=== PATIENT | male | born 1940 | race Caucasian/White ===

== ENCOUNTER 2023-04-21 17:21 | Inpatient (IN) | payer MEDICARE, OTHER ==
[~2023-04-21] VITALS: Ht 172.7 cm; Wt 90.7 kg
[2023-04-21] MEDS ORDERED: SENN8.6T19 PO (21:23)
[2023-04-21] MEDS ORDERED: ATOR10TA PO (21:23)
[2023-04-21] MEDS ORDERED: CARB1TAB21 PO (21:23)
[2023-04-21] MEDS ORDERED: AMLO5TAB4 PO (21:23)
[2023-04-21] MEDS ORDERED: TELM80TA2 PO (21:23)
[2023-04-21] MEDS ORDERED: ASPI-1101 PO (21:23)
[2023-04-21] MEDS ORDERED: POLY17PO4 PO (21:23)
[2023-04-21] MEDS ORDERED: CARV12.5 PO (21:23)
[2023-04-21] MEDS ORDERED: GABA-532 PO (21:23)
[2023-04-21] MEDS ORDERED: ACET-73 PO (21:23)
[2023-04-21] MEDS ORDERED: [UNRECOGNIZED DRUG - OTHER] PO (21:23)
[2023-04-21] MEDS ORDERED: DULO60CA45 PO (21:23)
[2023-04-21] MEDS ORDERED: SUBUTEX SL (21:23)
[2023-04-21] MEDS ORDERED: [UNRECOGNIZED DRUG - CODE] PO (21:23)
[2023-04-21] MEDS ORDERED: TAMS-3 PO (21:23)
[2023-04-21] MEDS ORDERED: ALLO100T56 PO (21:23)
[2023-04-21 21:35] VITALS: BP 103/48; TEMP 98.4; O2SAT 96
[2023-04-22 04:40] VITALS: BP 132/63; TEMP 98.3; O2SAT 93
[2023-04-22 08:00] VITALS: BP 122/60; TEMP 98.4; O2SAT 93
[2023-04-22] MEDS: CARBIDOPA/LEVODOPA 25-100MG TABLET PO SCH ×3 (13:47→22:03)
[2023-04-22] MEDS: GABAPENTIN 100 MG CAPSULE PO SCH ×2 (13:47→16:53)
[2023-04-22] MEDS: ACETAMINOPHEN ES 500 MG TABLET PO PRN (14:04)
[2023-04-22 16:37] VITALS: BP 144/66; TEMP 98.1; O2SAT 92
[2023-04-22] MEDS: ARGININE/GLUTAMINE/CALCIUM BMB 1 EACH POWD.PACK PO SCH (16:52)
[2023-04-22] MEDS: SENNOSIDES 1 TABLET PO SCH (16:53)
[2023-04-22] MEDS: AMLODIPINE 5 MG TABLET PO SCH (16:53)
[2023-04-22] MEDS: CARVEDILOL 12.5 MG TABLET PO SCH (17:02)
[2023-04-22 20:25] VITALS: BP 107/50; TEMP 98; O2SAT 94
[2023-04-22] MEDS: OXYCODONE HCL 5 MG TABLET PO PRN (22:12)
[2023-04-23 04:55] VITALS: BP 103/49; TEMP 98.1; O2SAT 93
[2023-04-23 07:22] LABS: BASOPHILS # (AUTO) 0.1 K/UL (0.0-0.2); EOSINOPHILS # (AUTO) 0.4 K/uL (0.0-0.7); EOSINOPHILS % (AUTO) 5.4 % (0.0-7.0); HEMOGLOBIN 9.9 g/dL (12.5-16.3); LYMPHOCYTES # (AUTO) 1.1 K/uL (0.8-4.8); LYMPHOCYTES % (AUTO) 15.8 % (20.5-51.5); MEAN CORPUSCULAR HEMOGLOBIN 31.3 uug (23.8-33.4); MEAN CORPUSCULAR HGB CONC 34 g/dL (32.5-36.3); MEAN CORPUSCULAR VOLUME 91.6 fL (73.0-96.2); MONOCYTES # (AUTO) 0.8 K/uL (0.1-1.30); MONOCYTES % (AUTO) 11.2 % (0.0-11.0); NEUTROPHILS # (AUTO) 4.6 K/uL (1.8-8.9); NEUTROPHILS % (AUTO) 66.6 % (38.5-71.5); PLATELET COUNT (AUTO) 476 K/uL (152-348); RED BLOOD CELL COUNT(AUTO) 3.17 MIL/uL (4.06-5.63); RED CELL DISTRIBUTION WIDTH 14.5 % (12.1-16.2)
[2023-04-23 07:29] LABS: DIFFERENTIAL COMMENT 1
[2023-04-23 07:44] VITALS: BP 115/55; TEMP 98.6; O2SAT 94
[2023-04-23 07:49] LABS: CARBON DIOXIDE 27 mmol/L (21-32); CHLORIDE 99 mmol/L (98-107); CREATININE 1.3 mg/dL (0.6-1.3); GLUCOSE 121 mg/dL (74-106); PHOSPHOROUS 3.7 mg/dL (2.5-4.9); POTASSIUM 4.2 mmol/L (3.5-5.1); SODIUM SERUM 134 mmol/L (136-145); UREA NITROGEN, BLOOD 36 mg/dL (7-18)
[2023-04-23] MEDS: MULTIVIT, IRON, MIN NO. 8, FA TABLET PO SCH (08:41)
[2023-04-23] MEDS: DULOXETINE 60 MG CAPSULE.DR PO SCH (08:41)
[2023-04-23] MEDS: ALLOPURINOL 100 MG TABLET PO SCH (08:42)
[2023-04-23] MEDS: ASPIRIN EC 81 MG TABLET.DR PO SCH (08:42)
[2023-04-23] MEDS: CARBIDOPA/LEVODOPA 25-100MG TABLET PO SCH ×4 (08:42→21:36)
[2023-04-23] MEDS: SENNOSIDES 1 TABLET PO SCH ×2 (08:42→16:40)
[2023-04-23] MEDS: AMLODIPINE 5 MG TABLET PO SCH ×2 (08:42→16:39)
[2023-04-23] MEDS: LOSARTAN POTASSIUM 50 MG TABLET PO SCH (08:42)
[2023-04-23] MEDS: MIRALAX 17 GM POWD.PACK PO SCH (08:43)
[2023-04-23] MEDS: GABAPENTIN 100 MG CAPSULE PO SCH ×3 (08:43→16:39)
[2023-04-23] MEDS: CARVEDILOL 12.5 MG TABLET PO SCH ×2 (08:43→17:07)
[2023-04-23] MEDS: ARGININE/GLUTAMINE/CALCIUM BMB 1 EACH POWD.PACK PO SCH ×2 (08:44→16:39)
[2023-04-23] MEDS ORDERED: ATORVASTATIN 10 MG TABLET PO SCH (09:00)
[2023-04-23] MEDS ORDERED: Medication Not On Formulary EA (Telmisartan (Micardis) 1 TAB) PO SCH (09:00)
[2023-04-23] MEDS ORDERED: VALSARTAN 160 MG TABLET PO SCH (09:00)
[2023-04-23] MEDS: OXYCODONE HCL 5 MG TABLET PO PRN ×2 (09:48→23:42)
[2023-04-23 16:38] VITALS: BP 105/50; TEMP 98; O2SAT 95
[2023-04-23 20:26] VITALS: BP 107/54; TEMP 98.1; O2SAT 93
[2023-04-23] MEDS: TAMSULOSIN HCL 0.4 MG CAP.SR.24H PO SCH (21:36)
[2023-04-24 04:38] VITALS: BP 137/64; TEMP 98.4; O2SAT 94
[2023-04-24 07:11] VITALS: BP 114/59; TEMP 98.2; O2SAT 96
[2023-04-24] MEDS: DULOXETINE 60 MG CAPSULE.DR PO SCH (08:45)
[2023-04-24] MEDS: CARBIDOPA/LEVODOPA 25-100MG TABLET PO SCH ×4 (08:45→20:10)
[2023-04-24] MEDS: ASPIRIN EC 81 MG TABLET.DR PO SCH (08:46)
[2023-04-24] MEDS: AMLODIPINE 5 MG TABLET PO SCH ×2 (08:47→17:00)
[2023-04-24] MEDS: CARVEDILOL 12.5 MG TABLET PO SCH ×2 (08:47→17:29)
[2023-04-24] MEDS: GABAPENTIN 100 MG CAPSULE PO SCH ×3 (08:47→17:30)
[2023-04-24] MEDS: ALLOPURINOL 100 MG TABLET PO SCH (08:48)
[2023-04-24] MEDS: ARGININE/GLUTAMINE/CALCIUM BMB 1 EACH POWD.PACK PO SCH ×2 (09:00→17:39)
[2023-04-24] MEDS: SENNOSIDES 1 TABLET PO SCH ×2 (10:42→17:31)
[2023-04-24] MEDS: LOSARTAN POTASSIUM 50 MG TABLET PO SCH (10:42)
[2023-04-24] MEDS: MULTIVIT, IRON, MIN NO. 8, FA TABLET PO SCH (10:43)
[2023-04-24] MEDS: MIRALAX 17 GM POWD.PACK PO SCH (10:43)
[2023-04-24 15:37] VITALS: BP 109/47; TEMP 98.9; O2SAT 96
[2023-04-24 20:00] VITALS: BP 108/52; TEMP 98.3; O2SAT 93
[2023-04-24] MEDS: TAMSULOSIN HCL 0.4 MG CAP.SR.24H PO SCH (20:10)
[2023-04-24] MEDS: OXYCODONE HCL 5 MG TABLET PO PRN (22:17)
[2023-04-25 03:52] VITALS: BP 115/64; TEMP 98.3; O2SAT 93
[2023-04-25 06:41] LABS: BASOPHILS # (AUTO) 0.1 K/UL (0.0-0.2); BASOPHILS % (AUTO) 1.3 % (0.0-2.0); EOSINOPHILS # (AUTO) 0.4 K/uL (0.0-0.7); EOSINOPHILS % (AUTO) 5.7 % (0.0-7.0); HEMOGLOBIN 9.9 g/dL (12.5-16.3); LYMPHOCYTES # (AUTO) 1.2 K/uL (0.8-4.8); LYMPHOCYTES % (AUTO) 18.6 % (20.5-51.5); MEAN CORPUSCULAR HEMOGLOBIN 31.1 uug (23.8-33.4); MEAN CORPUSCULAR HGB CONC 34 g/dL (32.5-36.3); MEAN CORPUSCULAR VOLUME 91.1 fL (73.0-96.2); MONOCYTES # (AUTO) 0.6 K/uL (0.1-1.30); MONOCYTES % (AUTO) 10.3 % (0.0-11.0); NEUTROPHILS % (AUTO) 64.1 % (38.5-71.5); PLATELET COUNT (AUTO) 463 K/uL (152-348); RED BLOOD CELL COUNT(AUTO) 3.18 MIL/uL (4.06-5.63); RED CELL DISTRIBUTION WIDTH 14.6 % (12.1-16.2); WHITE BLOOD COUNT (AUTO) 6.2 K/uL (3.6-10.2)
[2023-04-25 06:52] LABS: DIFFERENTIAL COMMENT 1
[2023-04-25 07:19] LABS: ALBUMIN 2.6 g/dL (3.4-5.0); BILIRUBIN,TOTAL 0.4 mg/dL (0.2-1.0); CALCIUM 10.5 mg/dL (8.5-10.1); CREATININE 1.3 mg/dL (0.6-1.3); MAGNESIUM 2.2 mg/dL (1.8-2.4); PHOSPHOROUS 3.8 mg/dL (2.5-4.9); POTASSIUM 4.2 mmol/L (3.5-5.1); TOTAL PROTEIN, SERUM 6.6 g/dL (6.4-8.2)
[2023-04-25] MEDS ORDERED: HYDROCODONE/APAP 5-325MG TABLET PO SCH ×3 (08:00→18:00)
[2023-04-25] MEDS: DULOXETINE 60 MG CAPSULE.DR PO SCH (08:27)
[2023-04-25] MEDS: MULTIVIT, IRON, MIN NO. 8, FA TABLET PO SCH (08:27)
[2023-04-25] MEDS: MIRALAX 17 GM POWD.PACK PO SCH (08:27)
[2023-04-25] MEDS: GABAPENTIN 100 MG CAPSULE PO SCH ×3 (08:28→16:11)
[2023-04-25] MEDS: SENNOSIDES 1 TABLET PO SCH ×2 (08:28→16:10)
[2023-04-25] MEDS: LOSARTAN POTASSIUM 50 MG TABLET PO SCH (08:28)
[2023-04-25] MEDS: ASPIRIN EC 81 MG TABLET.DR PO SCH (08:28)
[2023-04-25] MEDS: CARBIDOPA/LEVODOPA 25-100MG TABLET PO SCH ×4 (08:29→22:13)
[2023-04-25] MEDS: AMLODIPINE 5 MG TABLET PO SCH ×2 (08:29→16:11)
[2023-04-25] MEDS: CARVEDILOL 12.5 MG TABLET PO SCH ×2 (08:29→17:05)
[2023-04-25] MEDS: ALLOPURINOL 100 MG TABLET PO SCH (08:29)
[2023-04-25 08:30] VITALS: BP 120/55; TEMP 98.8; O2SAT 94
[2023-04-25] MEDS: ARGININE/GLUTAMINE/CALCIUM BMB 1 EACH POWD.PACK PO SCH ×2 (08:35→16:11)
[2023-04-25 16:54] VITALS: BP 115/53; TEMP 98; O2SAT 95
[2023-04-25 20:00] VITALS: BP 102/51; TEMP 98.8; O2SAT 93
[2023-04-25] MEDS: TAMSULOSIN HCL 0.4 MG CAP.SR.24H PO SCH (22:13)
[2023-04-25] MEDS: OXYCODONE HCL 5 MG TABLET PO PRN (22:27)
[2023-04-26] MEDS: ACETAMINOPHEN ES 500 MG TABLET PO PRN (01:15)
[2023-04-26 02:45] VITALS: BP 113/55; O2SAT 91
[2023-04-26] MEDS: OXYCODONE HCL 5 MG TABLET PO PRN ×2 (02:58→07:03)
[2023-04-26 06:49] LABS: BASOPHILS # (AUTO) 0.1 K/UL (0.0-0.2); BASOPHILS % (AUTO) 1.7 % (0.0-2.0); EOSINOPHILS # (AUTO) 0.4 K/uL (0.0-0.7); EOSINOPHILS % (AUTO) 7.1 % (0.0-7.0); HEMATOCRIT 28.6 % (36.7-47.1); HEMOGLOBIN 9.9 g/dL (12.5-16.3); LYMPHOCYTES # (AUTO) 0.9 K/uL (0.8-4.8); LYMPHOCYTES % (AUTO) 16.5 % (20.5-51.5); MEAN CORPUSCULAR HEMOGLOBIN 31.3 uug (23.8-33.4); MEAN CORPUSCULAR HGB CONC 34 g/dL (32.5-36.3); MEAN CORPUSCULAR VOLUME 90.8 fL (73.0-96.2); MONOCYTES # (AUTO) 0.6 K/uL (0.1-1.30); MONOCYTES % (AUTO) 11.6 % (0.0-11.0); NEUTROPHILS # (AUTO) 3.3 K/uL (1.8-8.9); NEUTROPHILS % (AUTO) 63.1 % (38.5-71.5); PLATELET COUNT (AUTO) 433 K/uL (152-348); RED BLOOD CELL COUNT(AUTO) 3.15 MIL/uL (4.06-5.63); RED CELL DISTRIBUTION WIDTH 14.4 % (12.1-16.2); WHITE BLOOD COUNT (AUTO) 5.2 K/uL (3.6-10.2)
[2023-04-26 07:07] LABS: ALANINE AMINOTRANSFERASE 20 U/L (16-63); ALBUMIN 2.6 g/dL (3.4-5.0); ALKALINE PHOSPHATASE 108 U/L (50-136); ASPARTATE AMINOTRANSFERASE 11 U/L (15-37); BILIRUBIN,TOTAL 0.3 mg/dL (0.2-1.0); CALCIUM 10.2 mg/dL (8.5-10.1); CARBON DIOXIDE 29 mmol/L (21-32); CHLORIDE 99 mmol/L (98-107); CREATININE 1.3 mg/dL (0.6-1.3); GLUCOSE 119 mg/dL (74-106); SODIUM SERUM 134 mmol/L (136-145); TOTAL PROTEIN, SERUM 6.6 g/dL (6.4-8.2); UREA NITROGEN, BLOOD 33 mg/dL (7-18)
[2023-04-26 07:20] LABS: DIFFERENTIAL COMMENT 1
[2023-04-26 07:55] VITALS: BP 124/51; TEMP 98; O2SAT 97
[2023-04-26] MEDS: MIRALAX 17 GM POWD.PACK PO SCH (08:39)
[2023-04-26] MEDS: LOSARTAN POTASSIUM 50 MG TABLET PO SCH (08:40)
[2023-04-26] MEDS: MULTIVIT, IRON, MIN NO. 8, FA TABLET PO SCH (08:40)
[2023-04-26] MEDS: ALLOPURINOL 100 MG TABLET PO SCH (08:40)
[2023-04-26] MEDS: DULOXETINE 60 MG CAPSULE.DR PO SCH (08:40)
[2023-04-26] MEDS: CARBIDOPA/LEVODOPA 25-100MG TABLET PO SCH ×4 (08:41→20:29)
[2023-04-26] MEDS: SENNOSIDES 1 TABLET PO SCH ×2 (08:41→16:32)
[2023-04-26] MEDS: GABAPENTIN 100 MG CAPSULE PO SCH ×3 (08:42→16:31)
[2023-04-26] MEDS: CARVEDILOL 12.5 MG TABLET PO SCH ×2 (08:42→17:06)
[2023-04-26] MEDS: ASPIRIN EC 81 MG TABLET.DR PO SCH (08:43)
[2023-04-26] MEDS: AMLODIPINE 5 MG TABLET PO SCH ×2 (08:44→16:31)
[2023-04-26] MEDS: ARGININE/GLUTAMINE/CALCIUM BMB 1 EACH POWD.PACK PO SCH ×2 (08:49→16:32)
[2023-04-26] MEDS ORDERED: HYDROCODONE/APAP 5-325MG TABLET PO SCH (09:00)
[2023-04-26] MEDS: HYDROMORPHONE HCL 2 MG TABLET PO SCH ×2 (11:34→17:06)
[2023-04-26 14:29] LABS: *BILIRUBIN,URIN NEGATIVE (NEGATIVE); *BLOOD, URINE 3+ (NEGATIVE); *COLOR,URINE YELLOW (YELLOW); *KETONES,URINE NEGATIVE (NEGATIVE); *PROTEIN,URINE 1+ (NEGATIVE); LEUKOCYTE ESTERASE ,URINE 1+ (NEGATIVE); NITRITE, URINE POSITIVE (NEGATIVE); UGLUCOSE NEGATIVE (NEGATIVE)
[2023-04-26 14:38] LABS: *CREATININE,URINE 57.3 mg/dL (30-125); *URINE TOTAL PROTEIN RANDOM 26.6 mg/dL (<150/24HR)
[2023-04-26 14:42] LABS: *CLARITY,URINE CLOUDY (CLEAR)
[2023-04-26 16:45] VITALS: BP 117/56; TEMP 97.7; O2SAT 97
[2023-04-26 20:16] LABS: RBC,URINE TNTC /HPF (0-3); WBC,URINE 20-50 /HPF (0-3)
[2023-04-26 20:17] LABS: BACTERIA,URINE MANY /HPF (NONE SEEN); CALCIUM OXALATE CRYSTALS,UR FEW /HPF (NONE SEEN); SQUAMOUS EPITHELIAL CELL,UR NONE SEEN /HPF (NONE SEEN)
[2023-04-26] MEDS: TAMSULOSIN HCL 0.4 MG CAP.SR.24H PO SCH (20:29)
[2023-04-26 21:30] VITALS: BP 99/44; TEMP 98.3; O2SAT 94
[2023-04-27] MEDS: ACETAMINOPHEN ES 500 MG TABLET PO PRN ×2 (03:30→22:43)
[2023-04-27 04:26] VITALS: BP 129/62; TEMP 98.4; O2SAT 92
[2023-04-27 06:40] LABS: BASOPHILS # (AUTO) 0.1 K/UL (0.0-0.2); BASOPHILS % (AUTO) 1.3 % (0.0-2.0); EOSINOPHILS # (AUTO) 0.3 K/uL (0.0-0.7); EOSINOPHILS % (AUTO) 5.4 % (0.0-7.0); HEMATOCRIT 29.8 % (36.7-47.1); HEMOGLOBIN 10.2 g/dL (12.5-16.3); LYMPHOCYTES # (AUTO) 0.9 K/uL (0.8-4.8); LYMPHOCYTES % (AUTO) 14.6 % (20.5-51.5); MEAN CORPUSCULAR HEMOGLOBIN 31.1 uug (23.8-33.4); MEAN CORPUSCULAR HGB CONC 34 g/dL (32.5-36.3); MEAN CORPUSCULAR VOLUME 90.7 fL (73.0-96.2); MONOCYTES # (AUTO) 0.6 K/uL (0.1-1.30); MONOCYTES % (AUTO) 8.7 % (0.0-11.0); NEUTROPHILS # (AUTO) 4.5 K/uL (1.8-8.9); PLATELET COUNT (AUTO) 437 K/uL (152-348); RED BLOOD CELL COUNT(AUTO) 3.28 MIL/uL (4.06-5.63); RED CELL DISTRIBUTION WIDTH 14.4 % (12.1-16.2); WHITE BLOOD COUNT (AUTO) 6.4 K/uL (3.6-10.2)
[2023-04-27 06:53] LABS: DIFFERENTIAL COMMENT 1
[2023-04-27 07:09] LABS: ALBUMIN 2.8 g/dL (3.4-5.0); BILIRUBIN,TOTAL 0.5 mg/dL (0.2-1.0); CALCIUM 10.1 mg/dL (8.5-10.1); CREATININE 1.2 mg/dL (0.6-1.3); POTASSIUM 4.1 mmol/L (3.5-5.1); TOTAL PROTEIN, SERUM 6.9 g/dL (6.4-8.2)
[2023-04-27 08:09] VITALS: BP 126/62; TEMP 97.8; O2SAT 93
[2023-04-27] MEDS: HYDROMORPHONE HCL 2 MG TABLET PO SCH ×2 (08:20→18:05)
[2023-04-27] MEDS: CARVEDILOL 12.5 MG TABLET PO SCH ×2 (08:26→18:00)
[2023-04-27] MEDS: LOSARTAN POTASSIUM 50 MG TABLET PO SCH (08:27)
[2023-04-27] MEDS: DULOXETINE 60 MG CAPSULE.DR PO SCH (08:27)
[2023-04-27] MEDS: GABAPENTIN 100 MG CAPSULE PO SCH ×3 (08:28→17:06)
[2023-04-27] MEDS: MIRALAX 17 GM POWD.PACK PO SCH (08:28)
[2023-04-27] MEDS: ASPIRIN EC 81 MG TABLET.DR PO SCH (08:28)
[2023-04-27] MEDS: CARBIDOPA/LEVODOPA 25-100MG TABLET PO SCH ×4 (08:29→20:30)
[2023-04-27] MEDS: MULTIVIT, IRON, MIN NO. 8, FA TABLET PO SCH (08:29)
[2023-04-27] MEDS: AMLODIPINE 5 MG TABLET PO SCH ×2 (08:29→17:00)
[2023-04-27] MEDS: SENNOSIDES 1 TABLET PO SCH ×2 (08:29→17:07)
[2023-04-27] MEDS: ALLOPURINOL 100 MG TABLET PO SCH (08:29)
[2023-04-27] MEDS: ARGININE/GLUTAMINE/CALCIUM BMB 1 EACH POWD.PACK PO SCH ×2 (08:34→17:06)
[2023-04-27 14:09] LABS: PTH, INTACT 6 pg/mL (15-65)
[2023-04-27 16:00] VITALS: BP 107/41; TEMP 97.5; O2SAT 97
[2023-04-27 20:00] VITALS: BP 101/47; TEMP 98; O2SAT 94
[2023-04-27] MEDS: TAMSULOSIN HCL 0.4 MG CAP.SR.24H PO SCH (20:30)
[2023-04-28 04:00] VITALS: BP 111/52; TEMP 98.7; O2SAT 93
[2023-04-28 06:27] LABS: BASOPHILS # (AUTO) 0.1 K/UL (0.0-0.2); BASOPHILS % (AUTO) 1.6 % (0.0-2.0); EOSINOPHILS # (AUTO) 0.4 K/uL (0.0-0.7); EOSINOPHILS % (AUTO) 5.6 % (0.0-7.0); LYMPHOCYTES % (AUTO) 15.7 % (20.5-51.5); MEAN CORPUSCULAR HEMOGLOBIN 31.1 uug (23.8-33.4); MEAN CORPUSCULAR HGB CONC 35 g/dL (32.5-36.3); MONOCYTES # (AUTO) 0.6 K/uL (0.1-1.30); MONOCYTES % (AUTO) 9.4 % (0.0-11.0); NEUTROPHILS # (AUTO) 4.2 K/uL (1.8-8.9); NEUTROPHILS % (AUTO) 67.7 % (38.5-71.5); PLATELET COUNT (AUTO) 388 K/uL (152-348); RED BLOOD CELL COUNT(AUTO) 3.23 MIL/uL (4.06-5.63); RED CELL DISTRIBUTION WIDTH 14.7 % (12.1-16.2); WHITE BLOOD COUNT (AUTO) 6.2 K/uL (3.6-10.2)
[2023-04-28 07:14] LABS: ALANINE AMINOTRANSFERASE 20 U/L (16-63); ALBUMIN 2.7 g/dL (3.4-5.0); ALKALINE PHOSPHATASE 111 U/L (50-136); ASPARTATE AMINOTRANSFERASE 14 U/L (15-37); BILIRUBIN,TOTAL 0.4 mg/dL (0.2-1.0); CALCIUM 9.9 mg/dL (8.5-10.1); CARBON DIOXIDE 28 mmol/L (21-32); CHLORIDE 100 mmol/L (98-107); CREATININE 1.3 mg/dL (0.6-1.3); GLUCOSE 117 mg/dL (74-106); POTASSIUM 4.1 mmol/L (3.5-5.1); SODIUM SERUM 138 mmol/L (136-145); TOTAL PROTEIN, SERUM 6.5 g/dL (6.4-8.2); UREA NITROGEN, BLOOD 22 mg/dL (7-18)
[2023-04-28 07:25] LABS: MAGNESIUM 2.2 mg/dL (1.8-2.4); PHOSPHOROUS 4.1 mg/dL (2.5-4.9)
[2023-04-28 07:29] LABS: THYROID STIMULATING HORMONE 3.617 mIU/mL (0.358-3.740)
[2023-04-28 07:50] VITALS: BP 151/66; TEMP 98.3; O2SAT 96
[2023-04-28 08:09] LABS: A/G RATIO 0.8 (0.7-1.7); ALBUMIN 2.5 g/dL (2.9-4.4); ALPHA-1-GLOBULIN 0.4 g/dL (0.0-0.4); BETA GLOBULIN 1.2 g/dL (0.7-1.3); GAMMA GLOBULIN 0.6 g/dL (0.4-1.8); GLOBULIN, TOTAL 3.3 g/dL (2.2-3.9); M-SPIKE Not Observed g/dL (Not Observed)
[2023-04-28] MEDS: SENNOSIDES 1 TABLET PO SCH ×2 (08:30→16:54)
[2023-04-28] MEDS: DULOXETINE 60 MG CAPSULE.DR PO SCH (08:30)
[2023-04-28] MEDS: MULTIVIT, IRON, MIN NO. 8, FA TABLET PO SCH (08:30)
[2023-04-28] MEDS: GABAPENTIN 100 MG CAPSULE PO SCH (08:30)
[2023-04-28] MEDS: CARBIDOPA/LEVODOPA 25-100MG TABLET PO SCH ×4 (08:31→20:31)
[2023-04-28] MEDS: ALLOPURINOL 100 MG TABLET PO SCH (08:31)
[2023-04-28] MEDS: CARVEDILOL 12.5 MG TABLET PO SCH ×2 (08:31→16:41)
[2023-04-28] MEDS: AMLODIPINE 5 MG TABLET PO SCH ×2 (08:31→16:41)
[2023-04-28] MEDS: ASPIRIN EC 81 MG TABLET.DR PO SCH (08:31)
[2023-04-28] MEDS: HYDROMORPHONE HCL 2 MG TABLET PO SCH (08:31)
[2023-04-28] MEDS: LOSARTAN POTASSIUM 25 MG TABLET PO SCH (08:33)
[2023-04-28] MEDS: MIRALAX 17 GM POWD.PACK PO SCH (08:33)
[2023-04-28] MEDS: ARGININE/GLUTAMINE/CALCIUM BMB 1 EACH POWD.PACK PO SCH ×2 (08:33→16:41)
[2023-04-28] MEDS: OXYCODONE HCL 5 MG TABLET PO PRN (13:34)
[2023-04-28] MEDS ORDERED: CEphaleXIN 500 MG CAPSULE PO SCH ×2 (14:00→21:00)
[2023-04-28] MEDS ORDERED: HYDROCODONE/APAP 10-325 MG TABLET PO SCH (14:00)
[2023-04-28] MEDS: GABAPENTIN 400 MG CAPSULE PO SCH ×2 (14:02→16:41)
[2023-04-28] MEDS: CEphaleXIN 500 MG CAPSULE PO SCH ×2 (14:02→23:28)
[2023-04-28 15:51] VITALS: BP 98/49; TEMP 98; O2SAT 96
[2023-04-28] MEDS: HYDROCODONE/APAP 10-325 MG TABLET PO SCH ×2 (16:00→21:09)
[2023-04-28 20:00] VITALS: BP 96/48; TEMP 98.2; O2SAT 96
[2023-04-28] MEDS: TAMSULOSIN HCL 0.4 MG CAP.SR.24H PO SCH (20:31)
[2023-04-29] MEDS: OXYCODONE HCL 5 MG TABLET PO PRN (02:32)
[2023-04-29] MEDS: ACETAMINOPHEN ES 500 MG TABLET PO PRN (03:18)
[2023-04-29 04:26] VITALS: BP 154/83; TEMP 98.2; O2SAT 96
[2023-04-29] MEDS: HYDROCODONE/APAP 10-325 MG TABLET PO SCH ×3 (06:07→21:44)
[2023-04-29 07:34] VITALS: BP 138/74; TEMP 98.1; O2SAT 94
[2023-04-29] MEDS: ASPIRIN EC 81 MG TABLET.DR PO SCH (09:08)
[2023-04-29] MEDS: GABAPENTIN 400 MG CAPSULE PO SCH ×3 (09:08→17:33)
[2023-04-29] MEDS: CARVEDILOL 12.5 MG TABLET PO SCH ×2 (09:08→17:40)
[2023-04-29] MEDS: SENNOSIDES 1 TABLET PO SCH ×2 (09:09→17:33)
[2023-04-29] MEDS: ALLOPURINOL 100 MG TABLET PO SCH (09:09)
[2023-04-29] MEDS: MULTIVIT, IRON, MIN NO. 8, FA TABLET PO SCH (09:10)
[2023-04-29] MEDS: CARBIDOPA/LEVODOPA 25-100MG TABLET PO SCH ×4 (09:10→21:44)
[2023-04-29] MEDS: LOSARTAN POTASSIUM 25 MG TABLET PO SCH (09:10)
[2023-04-29] MEDS: DULOXETINE 60 MG CAPSULE.DR PO SCH (09:10)
[2023-04-29] MEDS: CEphaleXIN 500 MG CAPSULE PO SCH (09:12)
[2023-04-29] MEDS: MIRALAX 17 GM POWD.PACK PO SCH (09:12)
[2023-04-29] MEDS: NEOMY/BACITRAC/POLYMI OINT 28.35 GM TUBE TOP SCH ×2 (09:19→17:34)
[2023-04-29] MEDS: AMLODIPINE 5 MG TABLET PO SCH ×2 (09:25→17:00)
[2023-04-29] MEDS: ARGININE/GLUTAMINE/CALCIUM BMB 1 EACH POWD.PACK PO SCH ×2 (10:16→17:34)
[2023-04-29] MEDS ORDERED: REMEDY ESSENTIAL ZINC PASTE 113 GM TOP PRN (11:30)
[2023-04-29 15:05] VITALS: BP 113/52; TEMP 98.3; O2SAT 93
[2023-04-29] MEDS ORDERED: IV NORMAL SALINE 250 ML IV ONE (18:15)
[2023-04-29 18:37] LABS: ABG BASE EXCESS -3.2 mmol/L (-2.0-2.0); ABG HCO3 20.2 mmol/L (22.0-26.0); ABG PCO2 30.9 mmHg (35.0-48.0); ABG PH 7.434 (7.340-7.440); ABG PO2 69.8 mmHg (75.0-100.0); ABG SITE RIGHT RADIAL; ABG TOTAL HEMOGLOBIN 10.8 G/dL (14.0-18.0); AaDO2 94.7 mmHg; COHb 0.4 % (0.0-3.9); MetHb 0.1 % (0.0-1.5); O2Hb 92.9 % (94.0-97.0)
[2023-04-29 18:52] LABS: BASOPHILS # (AUTO) 0.1 K/UL (0.0-0.2); BASOPHILS % (AUTO) 1.6 % (0.0-2.0); EOSINOPHILS # (AUTO) 0.3 K/uL (0.0-0.7); EOSINOPHILS % (AUTO) 4.7 % (0.0-7.0); HEMATOCRIT 27.9 % (36.7-47.1); HEMOGLOBIN 9.5 g/dL (12.5-16.3); LYMPHOCYTES % (AUTO) 15.3 % (20.5-51.5); MEAN CORPUSCULAR HEMOGLOBIN 31.1 uug (23.8-33.4); MEAN CORPUSCULAR HGB CONC 34 g/dL (32.5-36.3); MEAN CORPUSCULAR VOLUME 90.9 fL (73.0-96.2); MONOCYTES # (AUTO) 0.4 K/uL (0.1-1.30); MONOCYTES % (AUTO) 6.6 % (0.0-11.0); NEUTROPHILS # (AUTO) 4.5 K/uL (1.8-8.9); NEUTROPHILS % (AUTO) 71.8 % (38.5-71.5); PLATELET COUNT (AUTO) 360 K/uL (152-348); RED BLOOD CELL COUNT(AUTO) 3.07 MIL/uL (4.06-5.63); RED CELL DISTRIBUTION WIDTH 14.5 % (12.1-16.2); WHITE BLOOD COUNT (AUTO) 6.3 K/uL (3.6-10.2)
[2023-04-29 18:56] LABS: DIFFERENTIAL COMMENT 1
[2023-04-29] MEDS ORDERED: ALBUTEROL SULFATE 2.5 MG/3 ML NEBU NEB PRN (19:00)
[2023-04-29 19:01] LABS: CALCIUM 9.9 mg/dL (8.5-10.1); CARBON DIOXIDE 24 mmol/L (21-32); CHLORIDE 98 mmol/L (98-107); CREATININE 1.6 mg/dL (0.6-1.3); GLUCOSE 168 mg/dL (74-106); SODIUM SERUM 134 mmol/L (136-145); UREA NITROGEN, BLOOD 31 mg/dL (7-18)
[2023-04-29 19:06] LABS: ALANINE AMINOTRANSFERASE 15 U/L (16-63); ALBUMIN 2.5 g/dL (3.4-5.0); ALKALINE PHOSPHATASE 109 U/L (50-136); ASPARTATE AMINOTRANSFERASE 11 U/L (15-37); BILIRUBIN,TOTAL 0.3 mg/dL (0.2-1.0); TOTAL PROTEIN, SERUM 6.1 g/dL (6.4-8.2)
[2023-04-29 19:15] LABS: LACTIC ACID 3.2 mmol/L (0.4-2.0)
[2023-04-29 20:00] VITALS: BP 103/58; TEMP 98.2; O2SAT 96
[2023-04-29] MEDS ORDERED: VANCOMYCIN IV 1,500 MG in IV DEXTROSE 5% 500 ML IV ONE (20:00)
[2023-04-29] MEDS ORDERED: CEFTRIAXONE 1 G in IV DEXTROSE 5% 50 ML IV SCH (21:00)
[2023-04-29] MEDS: TAMSULOSIN HCL 0.4 MG CAP.SR.24H PO SCH (21:44)
[2023-04-29] MEDS ORDERED: MEROPENEM 0.5 G in IV NORMAL SALINE 50 ML IV SCH (22:00)
[2023-04-29] MEDS ORDERED: VANCOMYCIN 1000 MG VIAL ONE (22:08)
[2023-04-29] MEDS ORDERED: VANCOMYCIN HCL 500 MG VIAL ONE (22:09)
[2023-04-30 04:00] VITALS: BP 110/56; TEMP 98; O2SAT 97
[2023-04-30] MEDS ORDERED: MEROPENEM 500 MG in IV NORMAL SALINE 50 ML IV SCH (06:00)
[2023-04-30] MEDS: HYDROCODONE/APAP 10-325 MG TABLET PO SCH ×3 (06:17→22:23)
[2023-04-30 06:29] LABS: BASOPHILS # (AUTO) 0.1 K/UL (0.0-0.2); BASOPHILS % (AUTO) 1.2 % (0.0-2.0); EOSINOPHILS # (AUTO) 0.4 K/uL (0.0-0.7); HEMOGLOBIN 9.5 g/dL (12.5-16.3); LYMPHOCYTES # (AUTO) 1.1 K/uL (0.8-4.8); LYMPHOCYTES % (AUTO) 18.9 % (20.5-51.5); MEAN CORPUSCULAR HEMOGLOBIN 30.6 uug (23.8-33.4); MEAN CORPUSCULAR HGB CONC 34 g/dL (32.5-36.3); MONOCYTES # (AUTO) 0.6 K/uL (0.1-1.30); MONOCYTES % (AUTO) 9.6 % (0.0-11.0); NEUTROPHILS # (AUTO) 3.7 K/uL (1.8-8.9); NEUTROPHILS % (AUTO) 63.3 % (38.5-71.5); PLATELET COUNT (AUTO) 328 K/uL (152-348); RED BLOOD CELL COUNT(AUTO) 3.11 MIL/uL (4.06-5.63); RED CELL DISTRIBUTION WIDTH 14.3 % (12.1-16.2); WHITE BLOOD COUNT (AUTO) 5.8 K/uL (3.6-10.2)
[2023-04-30 06:35] LABS: DIFFERENTIAL COMMENT 1
[2023-04-30 06:47] LABS: ALANINE AMINOTRANSFERASE 12 U/L (16-63); ALBUMIN 2.5 g/dL (3.4-5.0); ALKALINE PHOSPHATASE 107 U/L (50-136); ASPARTATE AMINOTRANSFERASE 8 U/L (15-37); BILIRUBIN,TOTAL 0.4 mg/dL (0.2-1.0); CALCIUM 9.8 mg/dL (8.5-10.1); CARBON DIOXIDE 27 mmol/L (21-32); CHLORIDE 100 mmol/L (98-107); CREATININE 1.2 mg/dL (0.6-1.3); GLUCOSE 110 mg/dL (74-106); MAGNESIUM 2.1 mg/dL (1.8-2.4); POTASSIUM 4.1 mmol/L (3.5-5.1); SODIUM SERUM 135 mmol/L (136-145); TOTAL PROTEIN, SERUM 6.2 g/dL (6.4-8.2); UREA NITROGEN, BLOOD 30 mg/dL (7-18)
[2023-04-30 07:52] VITALS: BP 127/68; TEMP 98.4; O2SAT 92
[2023-04-30] MEDS: CARVEDILOL 12.5 MG TABLET PO SCH ×2 (08:00→18:00)
[2023-04-30] MEDS: MEROPENEM 500 MG in IV NORMAL SALINE 50 ML IV SCH ×2 (08:57→20:38)
[2023-04-30] MEDS: AMLODIPINE 5 MG TABLET PO SCH ×2 (09:00→17:00)
[2023-04-30] MEDS: CARBIDOPA/LEVODOPA 25-100MG TABLET PO SCH ×4 (09:48→20:38)
[2023-04-30] MEDS: SENNOSIDES 1 TABLET PO SCH ×2 (09:48→16:10)
[2023-04-30] MEDS: MULTIVIT, IRON, MIN NO. 8, FA TABLET PO SCH (09:48)
[2023-04-30] MEDS: ASPIRIN EC 81 MG TABLET.DR PO SCH (09:48)
[2023-04-30] MEDS: DULOXETINE 60 MG CAPSULE.DR PO SCH (09:48)
[2023-04-30] MEDS: GABAPENTIN 400 MG CAPSULE PO SCH ×3 (09:48→16:10)
[2023-04-30] MEDS: NEOMY/BACITRAC/POLYMI OINT 28.35 GM TUBE TOP SCH ×2 (09:49→17:18)
[2023-04-30] MEDS: MIRALAX 17 GM POWD.PACK PO SCH (09:49)
[2023-04-30] MEDS: ARGININE/GLUTAMINE/CALCIUM BMB 1 EACH POWD.PACK PO SCH ×2 (09:50→16:11)
[2023-04-30] MEDS: ALLOPURINOL 100 MG TABLET PO SCH (09:51)
[2023-04-30] MEDS: ACETAMINOPHEN ES 500 MG TABLET PO PRN (11:51)
[2023-04-30] MEDS ORDERED: VANCOMYCIN IV 1,250 MG in IV DEXTROSE 5% 250 ML IV SCH (16:00)
[2023-04-30] MEDS: TAMSULOSIN HCL 0.4 MG CAP.SR.24H PO SCH (20:38)
[2023-04-30 21:39] VITALS: BP 97/61; TEMP 98.2; O2SAT 99
[2023-05-01 04:22] VITALS: BP 102/68; TEMP 97.8; O2SAT 100
[2023-05-01] MEDS: OXYCODONE HCL 5 MG TABLET PO PRN ×3 (04:47→21:43)
[2023-05-01 06:43] VITALS: BP 102/68; TEMP 97.8; O2SAT 100
[2023-05-01] MEDS: HYDROCODONE/APAP 10-325 MG TABLET PO SCH ×3 (06:55→18:37)
[2023-05-01 07:30] LABS: CALCIUM 10.3 mg/dL (8.5-10.1); CARBON DIOXIDE 27 mmol/L (21-32); CHLORIDE 101 mmol/L (98-107); CREATININE 1.2 mg/dL (0.6-1.3); GLUCOSE 103 mg/dL (74-106); POTASSIUM 4.5 mmol/L (3.5-5.1); SODIUM SERUM 137 mmol/L (136-145); UREA NITROGEN, BLOOD 35 mg/dL (7-18)
[2023-05-01 08:00] VITALS: BP 138/84; TEMP 98.8; O2SAT 97
[2023-05-01] MEDS: ASPIRIN EC 81 MG TABLET.DR PO SCH (08:34)
[2023-05-01] MEDS: MULTIVIT, IRON, MIN NO. 8, FA TABLET PO SCH (08:34)
[2023-05-01] MEDS: CARBIDOPA/LEVODOPA 25-100MG TABLET PO SCH ×4 (08:34→21:32)
[2023-05-01] MEDS: GABAPENTIN 400 MG CAPSULE PO SCH ×3 (08:34→16:45)
[2023-05-01] MEDS: SENNOSIDES 1 TABLET PO SCH ×2 (08:34→16:45)
[2023-05-01] MEDS: CARVEDILOL 12.5 MG TABLET PO SCH ×2 (08:35→17:09)
[2023-05-01] MEDS: AMLODIPINE 5 MG TABLET PO SCH ×2 (08:35→16:47)
[2023-05-01] MEDS: DULOXETINE 60 MG CAPSULE.DR PO SCH (08:35)
[2023-05-01] MEDS: ARGININE/GLUTAMINE/CALCIUM BMB 1 EACH POWD.PACK PO SCH ×2 (09:00→16:47)
[2023-05-01] MEDS: MIRALAX 17 GM POWD.PACK PO SCH (09:00)
[2023-05-01] MEDS: NEOMY/BACITRAC/POLYMI OINT 28.35 GM TUBE TOP SCH ×2 (09:04→16:46)
[2023-05-01] MEDS: MEROPENEM 500 MG in IV NORMAL SALINE 50 ML IV SCH ×2 (09:23→21:30)
[2023-05-01] MEDS: ALLOPURINOL 100 MG TABLET PO SCH (09:39)
[2023-05-01 16:26] VITALS: BP 92/47; TEMP 97.4; O2SAT 93
[2023-05-01 20:35] VITALS: BP 121/51; TEMP 97.4; O2SAT 97
[2023-05-01] MEDS: TAMSULOSIN HCL 0.4 MG CAP.SR.24H PO SCH (21:32)
[2023-05-02] MEDS: HYDROCODONE/APAP 10-325 MG TABLET PO SCH ×4 (00:52→18:06)
[2023-05-02 04:35] VITALS: BP 109/58; TEMP 98.1; O2SAT 96
[2023-05-02] MEDS: MEROPENEM 500 MG in IV NORMAL SALINE 50 ML IV SCH (07:10)
[2023-05-02 08:00] VITALS: BP 116/55; TEMP 98.4; O2SAT 95
[2023-05-02] MEDS: MIRALAX 17 GM POWD.PACK PO SCH (08:29)
[2023-05-02] MEDS: DULOXETINE 60 MG CAPSULE.DR PO SCH (08:29)
[2023-05-02] MEDS: SENNOSIDES 1 TABLET PO SCH ×2 (08:29→16:07)
[2023-05-02] MEDS: CARBIDOPA/LEVODOPA 25-100MG TABLET PO SCH ×4 (08:29→21:42)
[2023-05-02] MEDS: AMLODIPINE 5 MG TABLET PO SCH ×2 (08:29→16:07)
[2023-05-02] MEDS: GABAPENTIN 400 MG CAPSULE PO SCH ×3 (08:29→16:07)
[2023-05-02] MEDS: CARVEDILOL 12.5 MG TABLET PO SCH ×2 (08:29→17:12)
[2023-05-02] MEDS: ALLOPURINOL 100 MG TABLET PO SCH (08:30)
[2023-05-02] MEDS: MULTIVIT, IRON, MIN NO. 8, FA TABLET PO SCH (08:30)
[2023-05-02] MEDS: ASPIRIN EC 81 MG TABLET.DR PO SCH (08:30)
[2023-05-02] MEDS: NEOMY/BACITRAC/POLYMI OINT 28.35 GM TUBE TOP SCH ×2 (08:41→16:08)
[2023-05-02] MEDS: ARGININE/GLUTAMINE/CALCIUM BMB 1 EACH POWD.PACK PO SCH ×2 (08:41→16:01)
[2023-05-02] MEDS: ACETAMINOPHEN ES 500 MG TABLET PO PRN (14:54)
[2023-05-02 15:31] VITALS: BP 138/84; TEMP 98.7; O2SAT 99
[2023-05-02] MEDS ORDERED: VANCOMYCIN IV 1,250 MG in IV DEXTROSE 5% 250 ML IV SCH (16:00)
[2023-05-02 16:45] VITALS: O2SAT 96
[2023-05-02] MEDS: TAMSULOSIN HCL 0.4 MG CAP.SR.24H PO SCH (21:41)
[2023-05-03] MEDS: HYDROCODONE/APAP 10-325 MG TABLET PO SCH ×5 (00:43→23:36)
[2023-05-03] MEDS: ACETAMINOPHEN ES 500 MG TABLET PO PRN (02:36)
[2023-05-03] MEDS: OXYCODONE HCL 5 MG TABLET PO PRN ×2 (02:36→14:59)
[2023-05-03 08:00] VITALS: BP 102/67; TEMP 98.2; O2SAT 98
[2023-05-03] MEDS: CARVEDILOL 12.5 MG TABLET PO SCH ×2 (08:00→17:15)
[2023-05-03] MEDS: SENNOSIDES 1 TABLET PO SCH ×2 (08:21→16:18)
[2023-05-03] MEDS: MULTIVIT, IRON, MIN NO. 8, FA TABLET PO SCH (08:21)
[2023-05-03] MEDS: ASPIRIN EC 81 MG TABLET.DR PO SCH (08:21)
[2023-05-03] MEDS: ALLOPURINOL 100 MG TABLET PO SCH (08:21)
[2023-05-03] MEDS: MIRALAX 17 GM POWD.PACK PO SCH (08:21)
[2023-05-03] MEDS: GABAPENTIN 400 MG CAPSULE PO SCH ×3 (08:22→16:18)
[2023-05-03] MEDS: DULOXETINE 60 MG CAPSULE.DR PO SCH (08:22)
[2023-05-03] MEDS: CARBIDOPA/LEVODOPA 25-100MG TABLET PO SCH ×4 (08:22→20:48)
[2023-05-03] MEDS: AMLODIPINE 5 MG TABLET PO SCH ×2 (08:43→17:00)
[2023-05-03] MEDS: ARGININE/GLUTAMINE/CALCIUM BMB 1 EACH POWD.PACK PO SCH ×2 (08:43→16:18)
[2023-05-03] MEDS: NEOMY/BACITRAC/POLYMI OINT 28.35 GM TUBE TOP SCH ×2 (09:15→16:18)
[2023-05-03 16:00] VITALS: BP 113/54; TEMP 98.1; O2SAT 98
[2023-05-03 20:25] VITALS: BP 98/53; TEMP 97.8; O2SAT 94
[2023-05-03] MEDS: TAMSULOSIN HCL 0.4 MG CAP.SR.24H PO SCH (20:48)
[2023-05-03] MEDS: DEXAMETHASONE SOD PHOSPHATE 4 MG INJ IV SCH (22:49)
[2023-05-04 04:22] VITALS: BP 166/85; TEMP 97.7; O2SAT 97
[2023-05-04] MEDS: HYDROCODONE/APAP 10-325 MG TABLET PO SCH ×3 (05:32→17:50)
[2023-05-04] MEDS: DEXAMETHASONE SOD PHOSPHATE 4 MG INJ IV SCH ×3 (05:33→21:43)
[2023-05-04 07:11] LABS: BASOPHILS % (AUTO) 0.7 % (0.0-2.0); EOSINOPHILS % (AUTO) 0.1 % (0.0-7.0); HEMATOCRIT 32.8 % (36.7-47.1); HEMOGLOBIN 11.3 g/dL (12.5-16.3); LYMPHOCYTES # (AUTO) 0.5 K/uL (0.8-4.8); LYMPHOCYTES % (AUTO) 10.6 % (20.5-51.5); MEAN CORPUSCULAR HEMOGLOBIN 30.8 uug (23.8-33.4); MEAN CORPUSCULAR HGB CONC 35 g/dL (32.5-36.3); MEAN CORPUSCULAR VOLUME 89.3 fL (73.0-96.2); MONOCYTES # (AUTO) 0.1 K/uL (0.1-1.30); MONOCYTES % (AUTO) 1.5 % (0.0-11.0); NEUTROPHILS # (AUTO) 4.2 K/uL (1.8-8.9); NEUTROPHILS % (AUTO) 87.1 % (38.5-71.5); PLATELET COUNT (AUTO) 360 K/uL (152-348); RED BLOOD CELL COUNT(AUTO) 3.68 MIL/uL (4.06-5.63); RED CELL DISTRIBUTION WIDTH 14.5 % (12.1-16.2); WHITE BLOOD COUNT (AUTO) 4.8 K/uL (3.6-10.2)
[2023-05-04 07:24] LABS: DIFFERENTIAL COMMENT 1
[2023-05-04 07:52] VITALS: BP 150/97; TEMP 98; O2SAT 98
[2023-05-04] MEDS: MIRALAX 17 GM POWD.PACK PO SCH (08:26)
[2023-05-04] MEDS: CARBIDOPA/LEVODOPA 25-100MG TABLET PO SCH ×4 (08:26→21:41)
[2023-05-04] MEDS: GABAPENTIN 400 MG CAPSULE PO SCH ×3 (08:26→16:09)
[2023-05-04] MEDS: MULTIVIT, IRON, MIN NO. 8, FA TABLET PO SCH (08:26)
[2023-05-04] MEDS: SENNOSIDES 1 TABLET PO SCH ×2 (08:26→16:09)
[2023-05-04] MEDS: AMLODIPINE 5 MG TABLET PO SCH ×2 (08:26→16:09)
[2023-05-04] MEDS: ALLOPURINOL 100 MG TABLET PO SCH (08:26)
[2023-05-04] MEDS: ASPIRIN EC 81 MG TABLET.DR PO SCH (08:26)
[2023-05-04] MEDS: CARVEDILOL 12.5 MG TABLET PO SCH ×2 (08:26→17:05)
[2023-05-04] MEDS: DULOXETINE 60 MG CAPSULE.DR PO SCH (08:26)
[2023-05-04 08:43] LABS: ALANINE AMINOTRANSFERASE 15 U/L (16-63); ALBUMIN 3.1 g/dL (3.4-5.0); ALKALINE PHOSPHATASE 149 U/L (50-136); ASPARTATE AMINOTRANSFERASE 9 U/L (15-37); BILIRUBIN,TOTAL 0.5 mg/dL (0.2-1.0); CALCIUM 10.1 mg/dL (8.5-10.1); CARBON DIOXIDE 27 mmol/L (21-32); CHLORIDE 97 mmol/L (98-107); CREATININE 1.2 mg/dL (0.6-1.3); GLUCOSE 177 mg/dL (74-106); POTASSIUM 4.4 mmol/L (3.5-5.1); SODIUM SERUM 133 mmol/L (136-145); TOTAL PROTEIN, SERUM 7.5 g/dL (6.4-8.2); UREA NITROGEN, BLOOD 25 mg/dL (7-18)
[2023-05-04] MEDS: ARGININE/GLUTAMINE/CALCIUM BMB 1 EACH POWD.PACK PO SCH ×2 (08:59→16:10)
[2023-05-04] MEDS: NEOMY/BACITRAC/POLYMI OINT 28.35 GM TUBE TOP SCH ×2 (08:59→16:10)
[2023-05-04] MEDS ORDERED: CLONIDINE HCL 0.1 MG TABLET PO PRN (10:45)
[2023-05-04 16:00] VITALS: BP 106/90; TEMP 98.8; O2SAT 98
[2023-05-04 20:00] VITALS: BP 131/69; TEMP 99; O2SAT 96
[2023-05-04] MEDS: OXYCODONE HCL 5 MG TABLET PO PRN (20:11)
[2023-05-04] MEDS: ACETAMINOPHEN ES 500 MG TABLET PO PRN (20:12)
[2023-05-04] MEDS: TAMSULOSIN HCL 0.4 MG CAP.SR.24H PO SCH (21:39)
[2023-05-05] MEDS: HYDROCODONE/APAP 10-325 MG TABLET PO SCH ×5 (00:32→23:02)
[2023-05-05 04:00] VITALS: BP 136/71; TEMP 97.5; O2SAT 96
[2023-05-05] MEDS: DEXAMETHASONE SOD PHOSPHATE 4 MG INJ IV SCH ×3 (05:28→21:37)
[2023-05-05 07:52] VITALS: BP 146/80; TEMP 98.4; O2SAT 95
[2023-05-05] MEDS: SENNOSIDES 1 TABLET PO SCH ×2 (08:38→17:47)
[2023-05-05] MEDS: MIRALAX 17 GM POWD.PACK PO SCH (08:38)
[2023-05-05] MEDS: NEOMY/BACITRAC/POLYMI OINT 28.35 GM TUBE TOP SCH ×5 (08:38→17:50)
[2023-05-05] MEDS: ASPIRIN EC 81 MG TABLET.DR PO SCH (08:38)
[2023-05-05] MEDS: ALLOPURINOL 100 MG TABLET PO SCH (08:38)
[2023-05-05] MEDS: MODAFINIL 100 MG TABLET PO SCH (08:39)
[2023-05-05] MEDS: AMLODIPINE 5 MG TABLET PO SCH ×2 (08:39→17:47)
[2023-05-05] MEDS: GABAPENTIN 400 MG CAPSULE PO SCH ×3 (08:39→17:46)
[2023-05-05] MEDS: OXYCODONE HCL 5 MG TABLET PO PRN ×2 (08:39→20:48)
[2023-05-05] MEDS: MULTIVIT, IRON, MIN NO. 8, FA TABLET PO SCH (08:39)
[2023-05-05] MEDS: CARBIDOPA/LEVODOPA 25-100MG TABLET PO SCH ×4 (08:39→20:48)
[2023-05-05] MEDS: CARVEDILOL 12.5 MG TABLET PO SCH ×2 (08:40→17:48)
[2023-05-05] MEDS: DULOXETINE 60 MG CAPSULE.DR PO SCH (08:40)
[2023-05-05] MEDS: ARGININE/GLUTAMINE/CALCIUM BMB 1 EACH POWD.PACK PO SCH ×2 (08:40→17:46)
[2023-05-05 15:02] VITALS: BP 111/49; TEMP 98.4; O2SAT 92
[2023-05-05 16:02] LABS: BASOPHILS % (AUTO) 0.4 % (0.0-2.0); HEMATOCRIT 33.8 % (36.7-47.1); HEMOGLOBIN 11.1 g/dL (12.5-16.3); LYMPHOCYTES # (AUTO) 0.7 K/uL (0.8-4.8); LYMPHOCYTES % (AUTO) 9.5 % (20.5-51.5); MEAN CORPUSCULAR HEMOGLOBIN 29.9 uug (23.8-33.4); MEAN CORPUSCULAR HGB CONC 33 g/dL (32.5-36.3); MEAN CORPUSCULAR VOLUME 90.6 fL (73.0-96.2); MONOCYTES # (AUTO) 0.3 K/uL (0.1-1.30); MONOCYTES % (AUTO) 4.3 % (0.0-11.0); NEUTROPHILS % (AUTO) 85.8 % (38.5-71.5); PLATELET COUNT (AUTO) 371 K/uL (152-348); RED BLOOD CELL COUNT(AUTO) 3.73 MIL/uL (4.06-5.63); RED CELL DISTRIBUTION WIDTH 14.8 % (12.1-16.2)
[2023-05-05 16:04] LABS: DIFFERENTIAL COMMENT 1
[2023-05-05 20:00] VITALS: BP 114/59; TEMP 99.1; O2SAT 93
[2023-05-05] MEDS: TAMSULOSIN HCL 0.4 MG CAP.SR.24H PO SCH (20:48)
[2023-05-06] MEDS: OXYCODONE HCL 5 MG TABLET PO PRN ×2 (02:08→19:36)
[2023-05-06 04:00] VITALS: BP 121/59; TEMP 98.2; O2SAT 94
[2023-05-06] MEDS: DEXAMETHASONE SOD PHOSPHATE 4 MG INJ IV SCH ×3 (05:48→21:37)
[2023-05-06] MEDS: HYDROCODONE/APAP 10-325 MG TABLET PO SCH ×4 (05:51→23:35)
[2023-05-06 07:32] VITALS: BP 123/66; TEMP 98.4; O2SAT 98
[2023-05-06] MEDS: CARVEDILOL 12.5 MG TABLET PO SCH ×2 (08:00→17:08)
[2023-05-06] MEDS: NEOMY/BACITRAC/POLYMI OINT 28.35 GM TUBE TOP SCH ×5 (09:00→17:04)
[2023-05-06] MEDS: AMLODIPINE 5 MG TABLET PO SCH ×2 (09:00→16:58)
[2023-05-06] MEDS: ASPIRIN EC 81 MG TABLET.DR PO SCH (09:01)
[2023-05-06] MEDS: ALLOPURINOL 100 MG TABLET PO SCH (09:01)
[2023-05-06] MEDS: MODAFINIL 100 MG TABLET PO SCH (09:01)
[2023-05-06] MEDS: MULTIVIT, IRON, MIN NO. 8, FA TABLET PO SCH (09:01)
[2023-05-06] MEDS: CARBIDOPA/LEVODOPA 25-100MG TABLET PO SCH ×4 (09:01→21:29)
[2023-05-06] MEDS: MIRALAX 17 GM POWD.PACK PO SCH (09:01)
[2023-05-06] MEDS: SENNOSIDES 1 TABLET PO SCH ×2 (09:01→16:57)
[2023-05-06] MEDS: DULOXETINE 60 MG CAPSULE.DR PO SCH (09:01)
[2023-05-06] MEDS: GABAPENTIN 400 MG CAPSULE PO SCH ×3 (09:01→17:03)
[2023-05-06] MEDS: ARGININE/GLUTAMINE/CALCIUM BMB 1 EACH POWD.PACK PO SCH ×2 (09:02→16:57)
[2023-05-06 15:16] VITALS: BP 150/77; TEMP 98.4; O2SAT 99
[2023-05-06 20:00] VITALS: BP 141/73; TEMP 97.4; O2SAT 95
[2023-05-06] MEDS: TAMSULOSIN HCL 0.4 MG CAP.SR.24H PO SCH (21:30)
[2023-05-07 04:00] VITALS: BP 151/84; TEMP 98.1; O2SAT 97
[2023-05-07] MEDS: OXYCODONE HCL 5 MG TABLET PO PRN ×2 (04:32→20:04)
[2023-05-07] MEDS: HYDROCODONE/APAP 10-325 MG TABLET PO SCH ×3 (05:51→17:20)
[2023-05-07] MEDS: DEXAMETHASONE SOD PHOSPHATE 4 MG INJ IV SCH ×3 (05:51→21:54)
[2023-05-07 07:57] VITALS: BP 139/83; TEMP 97.9; O2SAT 95
[2023-05-07] MEDS: GABAPENTIN 400 MG CAPSULE PO SCH ×3 (08:17→17:07)
[2023-05-07] MEDS: CARBIDOPA/LEVODOPA 25-100MG TABLET PO SCH ×4 (08:17→20:05)
[2023-05-07] MEDS: MODAFINIL 100 MG TABLET PO SCH (08:17)
[2023-05-07] MEDS: MULTIVIT, IRON, MIN NO. 8, FA TABLET PO SCH (08:17)
[2023-05-07] MEDS: ASPIRIN EC 81 MG TABLET.DR PO SCH (08:17)
[2023-05-07] MEDS: DULOXETINE 60 MG CAPSULE.DR PO SCH (08:17)
[2023-05-07] MEDS: AMLODIPINE 5 MG TABLET PO SCH ×2 (08:17→17:08)
[2023-05-07] MEDS: ARGININE/GLUTAMINE/CALCIUM BMB 1 EACH POWD.PACK PO SCH ×2 (08:18→17:06)
[2023-05-07] MEDS: SENNOSIDES 1 TABLET PO SCH ×2 (08:18→17:08)
[2023-05-07] MEDS: ALLOPURINOL 100 MG TABLET PO SCH (08:18)
[2023-05-07] MEDS: CARVEDILOL 12.5 MG TABLET PO SCH ×2 (08:18→17:20)
[2023-05-07] MEDS: NEOMY/BACITRAC/POLYMI OINT 28.35 GM TUBE TOP SCH ×5 (08:19→17:09)
[2023-05-07] MEDS: MIRALAX 17 GM POWD.PACK PO SCH (08:19)
[2023-05-07 16:27] VITALS: BP 127/70; TEMP 98; O2SAT 96
[2023-05-07] MEDS: TAMSULOSIN HCL 0.4 MG CAP.SR.24H PO SCH (20:05)
[2023-05-07 21:37] VITALS: BP 127/64; TEMP 98.4; O2SAT 96
[2023-05-08] MEDS: HYDROCODONE/APAP 10-325 MG TABLET PO SCH ×4 (00:48→18:08)
[2023-05-08 05:11] VITALS: BP 137/63; TEMP 97.3; O2SAT 97
[2023-05-08] MEDS: DEXAMETHASONE SOD PHOSPHATE 4 MG INJ IV SCH (05:33)
[2023-05-08 07:40] VITALS: BP 153/74; TEMP 97.9; O2SAT 97
[2023-05-08] MEDS: MULTIVIT, IRON, MIN NO. 8, FA TABLET PO SCH (08:32)
[2023-05-08] MEDS: GABAPENTIN 400 MG CAPSULE PO SCH ×3 (08:32→17:41)
[2023-05-08] MEDS: DULOXETINE 60 MG CAPSULE.DR PO SCH (08:32)
[2023-05-08] MEDS: ALLOPURINOL 100 MG TABLET PO SCH (08:32)
[2023-05-08] MEDS: ASPIRIN EC 81 MG TABLET.DR PO SCH (08:32)
[2023-05-08] MEDS: CARBIDOPA/LEVODOPA 25-100MG TABLET PO SCH ×4 (08:32→20:15)
[2023-05-08] MEDS: CARVEDILOL 12.5 MG TABLET PO SCH ×2 (08:33→17:41)
[2023-05-08] MEDS: AMLODIPINE 5 MG TABLET PO SCH ×2 (08:33→17:46)
[2023-05-08] MEDS: MIRALAX 17 GM POWD.PACK PO SCH (08:34)
[2023-05-08] MEDS: NEOMY/BACITRAC/POLYMI OINT 28.35 GM TUBE TOP SCH ×5 (08:34→17:44)
[2023-05-08] MEDS: ARGININE/GLUTAMINE/CALCIUM BMB 1 EACH POWD.PACK PO SCH ×2 (08:34→17:42)
[2023-05-08] MEDS: MODAFINIL 100 MG TABLET PO SCH (09:07)
[2023-05-08] MEDS: SENNOSIDES 1 TABLET PO SCH ×2 (09:32→17:41)
[2023-05-08 16:00] VITALS: BP 132/68; TEMP 98.1; O2SAT 98
[2023-05-08 20:00] VITALS: BP 144/76; TEMP 98.2; O2SAT 95
[2023-05-08] MEDS: TAMSULOSIN HCL 0.4 MG CAP.SR.24H PO SCH (20:15)
[2023-05-09 04:14] VITALS: BP 143/62; TEMP 97.4; O2SAT 96
[2023-05-09] MEDS: OXYCODONE HCL 5 MG TABLET PO PRN (04:21)
[2023-05-09] MEDS: HYDROCODONE/APAP 10-325 MG TABLET PO SCH ×6 (06:00→23:31)
[2023-05-09 06:47] LABS: BASOPHILS % (AUTO) 0.1 % (0.0-2.0); EOSINOPHILS # (AUTO) 0.1 K/uL (0.0-0.7); EOSINOPHILS % (AUTO) 0.8 % (0.0-7.0); HEMATOCRIT 38.8 % (36.7-47.1); HEMOGLOBIN 13.3 g/dL (12.5-16.3); LYMPHOCYTES # (AUTO) 1.3 K/uL (0.8-4.8); MEAN CORPUSCULAR HEMOGLOBIN 30.8 uug (23.8-33.4); MEAN CORPUSCULAR HGB CONC 34 g/dL (32.5-36.3); MEAN CORPUSCULAR VOLUME 89.6 fL (73.0-96.2); MONOCYTES % (AUTO) 8.5 % (0.0-11.0); NEUTROPHILS # (AUTO) 9.6 K/uL (1.8-8.9); NEUTROPHILS % (AUTO) 79.6 % (38.5-71.5); PLATELET COUNT (AUTO) 441 K/uL (152-348); RED BLOOD CELL COUNT(AUTO) 4.33 MIL/uL (4.06-5.63); RED CELL DISTRIBUTION WIDTH 14.8 % (12.1-16.2)
[2023-05-09 07:01] LABS: DIFFERENTIAL COMMENT 1
[2023-05-09 07:05] LABS: ALANINE AMINOTRANSFERASE 16 U/L (16-63); ALBUMIN 3.4 g/dL (3.4-5.0); ALKALINE PHOSPHATASE 126 U/L (50-136); ASPARTATE AMINOTRANSFERASE 18 U/L (15-37); BILIRUBIN,TOTAL 0.6 mg/dL (0.2-1.0); CALCIUM 9.4 mg/dL (8.5-10.1); CARBON DIOXIDE 30 mmol/L (21-32); CHLORIDE 96 mmol/L (98-107); CREATININE 1.1 mg/dL (0.6-1.3); GLUCOSE 113 mg/dL (74-106); SODIUM SERUM 134 mmol/L (136-145); TOTAL PROTEIN, SERUM 7.1 g/dL (6.4-8.2); UREA NITROGEN, BLOOD 40 mg/dL (7-18)
[2023-05-09] MEDS: AMLODIPINE 5 MG TABLET PO SCH ×2 (08:01→16:03)
[2023-05-09] MEDS: DULOXETINE 60 MG CAPSULE.DR PO SCH (08:01)
[2023-05-09] MEDS: ASPIRIN EC 81 MG TABLET.DR PO SCH (08:01)
[2023-05-09] MEDS: CARBIDOPA/LEVODOPA 25-100MG TABLET PO SCH ×4 (08:01→20:16)
[2023-05-09] MEDS: MIRALAX 17 GM POWD.PACK PO SCH (08:01)
[2023-05-09] MEDS: MODAFINIL 100 MG TABLET PO SCH (08:01)
[2023-05-09] MEDS: GABAPENTIN 400 MG CAPSULE PO SCH ×3 (08:01→16:11)
[2023-05-09] MEDS: ALLOPURINOL 100 MG TABLET PO SCH (08:01)
[2023-05-09] MEDS: SENNOSIDES 1 TABLET PO SCH ×2 (08:01→16:11)
[2023-05-09] MEDS: CARVEDILOL 12.5 MG TABLET PO SCH ×2 (08:02→17:02)
[2023-05-09] MEDS: MULTIVIT, IRON, MIN NO. 8, FA TABLET PO SCH (08:03)
[2023-05-09 08:21] VITALS: BP 152/80; TEMP 98.4; O2SAT 92
[2023-05-09] MEDS: ARGININE/GLUTAMINE/CALCIUM BMB 1 EACH POWD.PACK PO SCH ×2 (08:35→16:11)
[2023-05-09] MEDS: NEOMY/BACITRAC/POLYMI OINT 28.35 GM TUBE TOP SCH ×3 (08:42→16:11)
[2023-05-09 15:09] VITALS: BP 115/60; TEMP 98.4; O2SAT 98
[2023-05-09] MEDS: TAMSULOSIN HCL 0.4 MG CAP.SR.24H PO SCH (20:16)
[2023-05-09 22:25] VITALS: BP 94/58; TEMP 98.4; O2SAT 95
[2023-05-10] MEDS: ACETAMINOPHEN ES 500 MG TABLET PO PRN ×3 (02:34→16:48)
[2023-05-10] MEDS: OXYCODONE HCL 5 MG TABLET PO PRN (02:35)
[2023-05-10 04:00] VITALS: BP 115/58; TEMP 98.2; O2SAT 95
[2023-05-10] MEDS: HYDROCODONE/APAP 10-325 MG TABLET PO SCH ×3 (06:08→18:15)
[2023-05-10 08:12] VITALS: BP 113/57
[2023-05-10 08:28] VITALS: BP 113/57; TEMP 97.6; O2SAT 94
[2023-05-10] MEDS: DULOXETINE 60 MG CAPSULE.DR PO SCH (08:36)
[2023-05-10] MEDS: MIRALAX 17 GM POWD.PACK PO SCH (08:36)
[2023-05-10] MEDS: MODAFINIL 100 MG TABLET PO SCH (08:37)
[2023-05-10] MEDS: SENNOSIDES 1 TABLET PO SCH ×2 (08:38→16:48)
[2023-05-10] MEDS: GABAPENTIN 400 MG CAPSULE PO SCH ×3 (08:38→16:47)
[2023-05-10] MEDS: MULTIVIT, IRON, MIN NO. 8, FA TABLET PO SCH (08:38)
[2023-05-10] MEDS: ALLOPURINOL 100 MG TABLET PO SCH (08:38)
[2023-05-10] MEDS: ASPIRIN EC 81 MG TABLET.DR PO SCH (08:38)
[2023-05-10] MEDS: CARBIDOPA/LEVODOPA 25-100MG TABLET PO SCH ×4 (08:38→21:05)
[2023-05-10] MEDS: CARVEDILOL 12.5 MG TABLET PO SCH ×2 (08:39→18:00)
[2023-05-10] MEDS: ARGININE/GLUTAMINE/CALCIUM BMB 1 EACH POWD.PACK PO SCH ×2 (08:39→16:47)
[2023-05-10] MEDS: AMLODIPINE 5 MG TABLET PO SCH ×2 (08:39→17:00)
[2023-05-10] MEDS: NEOMY/BACITRAC/POLYMI OINT 28.35 GM TUBE TOP SCH ×3 (09:12→17:01)
[2023-05-10] MEDS: DEXAMETHASONE SOD PHOSPHATE 10 MG INJ IV SCH ×2 (15:01→21:11)
[2023-05-10 16:00] VITALS: BP 98/55; TEMP 98.8; O2SAT 96
[2023-05-10 17:47] LABS: BASOPHILS % (AUTO) 0.2 % (0.0-2.0); EOSINOPHILS # (AUTO) 0.1 K/uL (0.0-0.7); EOSINOPHILS % (AUTO) 0.4 % (0.0-7.0); HEMATOCRIT 36.9 % (36.7-47.1); HEMOGLOBIN 12.3 g/dL (12.5-16.3); LYMPHOCYTES # (AUTO) 0.6 K/uL (0.8-4.8); LYMPHOCYTES % (AUTO) 3.8 % (20.5-51.5); MEAN CORPUSCULAR HEMOGLOBIN 30.2 uug (23.8-33.4); MEAN CORPUSCULAR HGB CONC 33 g/dL (32.5-36.3); MEAN CORPUSCULAR VOLUME 90.5 fL (73.0-96.2); MONOCYTES # (AUTO) 0.4 K/uL (0.1-1.30); MONOCYTES % (AUTO) 2.8 % (0.0-11.0); NEUTROPHILS # (AUTO) 13.6 K/uL (1.8-8.9); NEUTROPHILS % (AUTO) 92.8 % (38.5-71.5); PLATELET COUNT (AUTO) 339 K/uL (152-348); RED BLOOD CELL COUNT(AUTO) 4.08 MIL/uL (4.06-5.63); RED CELL DISTRIBUTION WIDTH 14.8 % (12.1-16.2); WHITE BLOOD COUNT (AUTO) 14.7 K/uL (3.6-10.2)
[2023-05-10 17:50] LABS: *BILIRUBIN,URIN NEGATIVE (NEGATIVE); *CLARITY,URINE CLEAR (CLEAR); *COLOR,URINE YELLOW (YELLOW); *KETONES,URINE TRACE (NEGATIVE); *PROTEIN,URINE 1+ (NEGATIVE); *UROBILINOGEN,URINE 0.2 E.U./dl (NORMAL); LEUKOCYTE ESTERASE ,URINE TRACE (NEGATIVE); NITRITE, URINE NEGATIVE (NEGATIVE); PH,URINE 5.5 (5.0-8.0); UGLUCOSE NEGATIVE (NEGATIVE)
[2023-05-10 18:07] LABS: DIFFERENTIAL COMMENT 1
[2023-05-10 18:09] LABS: *BLOOD, URINE TRACE (NEGATIVE)
[2023-05-10 18:34] LABS: CARBON DIOXIDE 25 mmol/L (21-32); CHLORIDE 94 mmol/L (98-107); CREATININE 1.6 mg/dL (0.6-1.3); GLUCOSE 188 mg/dL (74-106); POTASSIUM 4.2 mmol/L (3.5-5.1); SODIUM SERUM 132 mmol/L (136-145); UREA NITROGEN, BLOOD 50 mg/dL (7-18)
[2023-05-10 18:39] LABS: ALANINE AMINOTRANSFERASE 14 U/L (16-63); ALBUMIN 3.1 g/dL (3.4-5.0); ALKALINE PHOSPHATASE 124 U/L (50-136); ASPARTATE AMINOTRANSFERASE 22 U/L (15-37); BILIRUBIN,TOTAL 0.4 mg/dL (0.2-1.0); TOTAL PROTEIN, SERUM 6.7 g/dL (6.4-8.2)
[2023-05-10 18:54] LABS: BACTERIA,URINE MODERATE /HPF (NONE SEEN); COARSE GRANULAR CASTS,URINE 0-3 /LPF; SQUAMOUS EPITHELIAL CELL,UR FEW /HPF (NONE SEEN)
[2023-05-10 20:01] VITALS: BP 107/57; TEMP 98.5; O2SAT 95
[2023-05-10] MEDS: TAMSULOSIN HCL 0.4 MG CAP.SR.24H PO SCH (21:05)
[2023-05-10] MEDS ORDERED: CEFEPIME HCL 1 G VIAL ONE (23:27)
[2023-05-11] MEDS: CEFEPIME HCL 1 G in IV DEXTROSE 5% 50 ML IV SCH ×3 (00:23→15:25)
[2023-05-11] MEDS: HYDROCODONE/APAP 10-325 MG TABLET PO SCH ×4 (00:43→17:51)
[2023-05-11] MEDS: ACETAMINOPHEN ES 500 MG TABLET PO PRN (03:26)
[2023-05-11 04:02] VITALS: BP 110/58; TEMP 98.4; O2SAT 95
[2023-05-11] MEDS: DEXAMETHASONE SOD PHOSPHATE 10 MG INJ IV SCH ×2 (05:18→15:12)
[2023-05-11 07:49] VITALS: BP 100/64; TEMP 97.8; O2SAT 97
[2023-05-11] MEDS: MODAFINIL 100 MG TABLET PO SCH (08:43)
[2023-05-11] MEDS: MULTIVIT, IRON, MIN NO. 8, FA TABLET PO SCH (08:43)
[2023-05-11] MEDS: MIRALAX 17 GM POWD.PACK PO SCH (08:43)
[2023-05-11] MEDS: AMLODIPINE 5 MG TABLET PO SCH ×2 (08:44→17:52)
[2023-05-11] MEDS: SENNOSIDES 1 TABLET PO SCH ×2 (08:44→17:51)
[2023-05-11] MEDS: GABAPENTIN 400 MG CAPSULE PO SCH ×3 (08:44→17:51)
[2023-05-11] MEDS: ALLOPURINOL 100 MG TABLET PO SCH (08:44)
[2023-05-11] MEDS: CARVEDILOL 12.5 MG TABLET PO SCH ×2 (08:44→17:51)
[2023-05-11] MEDS: DULOXETINE 60 MG CAPSULE.DR PO SCH (08:44)
[2023-05-11] MEDS: ASPIRIN EC 81 MG TABLET.DR PO SCH (08:44)
[2023-05-11] MEDS: CARBIDOPA/LEVODOPA 25-100MG TABLET PO SCH ×3 (08:44→17:51)
[2023-05-11] MEDS: OXYCODONE HCL 5 MG TABLET PO PRN (08:45)
[2023-05-11] MEDS: NEOMY/BACITRAC/POLYMI OINT 28.35 GM TUBE TOP SCH ×3 (08:46→17:53)
[2023-05-11] MEDS: ARGININE/GLUTAMINE/CALCIUM BMB 1 EACH POWD.PACK PO SCH ×2 (08:51→17:52)
[2023-05-11 10:02] LABS: BASOPHILS % (AUTO) 0.3 % (0.0-2.0); EOSINOPHILS # (AUTO) 0.1 K/uL (0.0-0.7); EOSINOPHILS % (AUTO) 0.5 % (0.0-7.0); HEMATOCRIT 34.4 % (36.7-47.1); HEMOGLOBIN 11.6 g/dL (12.5-16.3); LYMPHOCYTES # (AUTO) 0.4 K/uL (0.8-4.8); LYMPHOCYTES % (AUTO) 4.3 % (20.5-51.5); MEAN CORPUSCULAR HEMOGLOBIN 30.3 uug (23.8-33.4); MEAN CORPUSCULAR HGB CONC 34 g/dL (32.5-36.3); MONOCYTES # (AUTO) 0.2 K/uL (0.1-1.30); MONOCYTES % (AUTO) 2.5 % (0.0-11.0); NEUTROPHILS # (AUTO) 9.1 K/uL (1.8-8.9); NEUTROPHILS % (AUTO) 92.4 % (38.5-71.5); PLATELET COUNT (AUTO) 299 K/uL (152-348); RED BLOOD CELL COUNT(AUTO) 3.82 MIL/uL (4.06-5.63); WHITE BLOOD COUNT (AUTO) 9.8 K/uL (3.6-10.2)
[2023-05-11 10:09] LABS: DIFFERENTIAL COMMENT 1
[2023-05-11 10:18] LABS: ALANINE AMINOTRANSFERASE 8 U/L (16-63); ALKALINE PHOSPHATASE 118 U/L (50-136); ASPARTATE AMINOTRANSFERASE 20 U/L (15-37); BILIRUBIN,TOTAL 0.4 mg/dL (0.2-1.0); CALCIUM 8.8 mg/dL (8.5-10.1); CARBON DIOXIDE 25 mmol/L (21-32); CHLORIDE 96 mmol/L (98-107); CREATININE 1.4 mg/dL (0.6-1.3); GLUCOSE 207 mg/dL (74-106); MAGNESIUM 2.2 mg/dL (1.8-2.4); PHOSPHOROUS 3.8 mg/dL (2.5-4.9); POTASSIUM 4.3 mmol/L (3.5-5.1); SODIUM SERUM 130 mmol/L (136-145); TOTAL PROTEIN, SERUM 6.6 g/dL (6.4-8.2); UREA NITROGEN, BLOOD 54 mg/dL (7-18)
[2023-05-11 15:51] VITALS: TEMP 98.5; O2SAT 97
[2023-05-11 15:54] VITALS: BP 112/57; TEMP 98.3; O2SAT 98
[2023-05-11 17:52] VITALS: BP 112/57
[2023-05-11] MEDS ORDERED: HYDR-3980 PO ×2 (20:36→20:42)
[2023-05-11] MEDS ORDERED: CEFE1PIG3 IV (20:36)
[2023-05-11] MEDS ORDERED: DEXA4VIA17 IV (20:36)
[2023-05-11] MEDS ORDERED: ARGI1POW17 PO (20:36)
[2023-05-11] MEDS ORDERED: MODA200T44 PO (20:36)
[2023-05-11] MEDS ORDERED: OXYC10TA49 PO (20:36)
[2023-05-11] MEDS ORDERED: CLON0.1T PO (20:36)
[2023-05-11] MEDS ORDERED: ALBU2.5V13 IH (20:36)
[2023-05-11] MEDS ORDERED: [UNRECOGNIZED DRUG - CODE] TP (20:36)
== END 2023-05-11 18:58 | disposition short-term general hospital (02) | DRG 949 ==
PROVIDERS: ADMIT Physical Medicine & Rehabilitation Pain Medicine; ATTEND Physical Medicine & Rehabilitation Pain Medicine
DX: Z48.3 Aftercare following surgery for neoplasm (principal); A41.9 Sepsis, unspecified organism; E43 Unspecified severe protein-calorie malnutrition; J96.01 Acute respiratory failure with hypoxia; N17.0 Acute kidney failure with tubular necrosis; J69.0 Pneumonitis due to inhalation of food and vomit; C79.51 Secondary malignant neoplasm of bone; D68.59 Other primary thrombophilia; E22.2 Syndrome of inappropriate secretion of antidiuretic hormone; G95.29 Other cord compression; G93.40 Encephalopathy, unspecified; N39.0 Urinary tract infection, site not specified; T81.30XA Disruption of wound, unspecified, initial encounter; C79.49 Secondary malignant neoplasm of other parts of nervous system; Z85.528 Personal history of other malignant neoplasm of kidney; Z47.89 Encounter for other orthopedic aftercare; M84.48XD Pathological fracture, other site, subsequent encounter for fracture with routine healing; M51.36 Other intervertebral disc degeneration, lumbar region; G20.A1 Parkinson's disease without dyskinesia, without mention of fluctuations; Z98.1 Arthrodesis status; D63.8 Anemia in other chronic diseases classified elsewhere; E86.0 Dehydration; M10.9 Gout, unspecified; M43.17 Spondylolisthesis, lumbosacral region; M47.816 Spondylosis without myelopathy or radiculopathy, lumbar region; N18.9 Chronic kidney disease, unspecified; I12.9 Hypertensive chronic kidney disease with stage 1 through stage 4 chronic kidney disease, or unspecified chronic kidney disease; N40.0 Benign prostatic hyperplasia without lower urinary tract symptoms; Y83.8 Other surgical procedures as the cause of abnormal reaction of the patient, or of later complication, without mention of misadventure at the time of the procedure; Y92.238 Other place in hospital as the place of occurrence of the external cause; Z85.46 Personal history of malignant neoplasm of prostate; Z90.5 Acquired absence of kidney; R26.9 Unspecified abnormalities of gait and mobility
CPT/HCPCS: 36415; 36600; 71045; 72131; 76770; 83550; 83605; 83735; 83970; 84100; 84155; 84165; 84300; 84443; 84484; 85025; 93005; 97535-GO-CO; A4663; A9150; J0692; J0696; J1100; J2185; J3370; J7050; J7060; J8499

== ENCOUNTER 2023-05-11 19:00 | Inpatient (IN) | payer MEDICARE, OTHER ==
[~2023-05-11] VITALS: Ht 172.7 cm; Wt 87.7 kg
[~2023-05-11 19:00] MED LIST: ACET-73 PO; ALLO100T56 PO; AMLO5TAB4 PO; ASPI-1101 PO; ATOR10TA PO; CARB1TAB21 PO; CARV12.5 PO; DULO60CA45 PO; GABA-532 PO; POLY17PO4 PO; SENN8.6T19 PO; SUBUTEX SL; TAMS-3 PO; TELM80TA2 PO; [UNRECOGNIZED DRUG - CODE] PO; [UNRECOGNIZED DRUG - OTHER] PO
[2023-05-11 20:00] VITALS: BP 116/56; TEMP 97.7; O2SAT 96
[2023-05-11] MEDS ORDERED: CEFE1PIG3 IV (20:36)
[2023-05-11] MEDS ORDERED: HYDR-3980 PO (20:36)
[2023-05-11] MEDS ORDERED: DEXA4VIA17 IV (20:36)
[2023-05-11] MEDS ORDERED: CLON0.1T PO (20:36)
[2023-05-11] MEDS ORDERED: OXYC10TA49 PO (20:36)
[2023-05-11] MEDS ORDERED: ARGI1POW17 PO (20:36)
[2023-05-11] MEDS ORDERED: ALBU2.5V13 IH (20:36)
[2023-05-11] MEDS ORDERED: MODA200T44 PO (20:36)
[2023-05-11] MEDS ORDERED: [UNRECOGNIZED DRUG - CODE] TP (20:36)
[2023-05-12] VITALS: BP 109/46; TEMP 97.4; O2SAT 94
[2023-05-12] MEDS: OXYCODONE HCL 5 MG TABLET PO PRN (02:34)
[2023-05-12 04:00] VITALS: BP 124/59; TEMP 98.1; O2SAT 96
[2023-05-12 06:01] LABS: *BILIRUBIN,URIN NEGATIVE (NEGATIVE); *BLOOD, URINE 2+ (NEGATIVE); *CLARITY,URINE CLEAR (CLEAR); *COLOR,URINE YELLOW (YELLOW); *KETONES,URINE NEGATIVE (NEGATIVE); *PROTEIN,URINE 1+ (NEGATIVE); *UROBILINOGEN,URINE 0.2 E.U./dl (NORMAL); LEUKOCYTE ESTERASE ,URINE TRACE (NEGATIVE); NITRITE, URINE NEGATIVE (NEGATIVE); PH,URINE 6.5 (5.0-8.0); UGLUCOSE NEGATIVE (NEGATIVE)
[2023-05-12 06:13] LABS: BACTERIA,URINE FEW /HPF (NONE SEEN); SQUAMOUS EPITHELIAL CELL,UR NONE SEEN /HPF (NONE SEEN)
[2023-05-12 07:05] LABS: BASOPHILS % (AUTO) 0.1 % (0.0-2.0); EOSINOPHILS # (AUTO) 0.1 K/uL (0.0-0.7); EOSINOPHILS % (AUTO) 1.2 % (0.0-7.0); HEMATOCRIT 34.6 % (36.7-47.1); HEMOGLOBIN 11.8 g/dL (12.5-16.3); LYMPHOCYTES # (AUTO) 0.7 K/uL (0.8-4.8); LYMPHOCYTES % (AUTO) 6.8 % (20.5-51.5); MEAN CORPUSCULAR HEMOGLOBIN 30.6 uug (23.8-33.4); MEAN CORPUSCULAR HGB CONC 34 g/dL (32.5-36.3); MEAN CORPUSCULAR VOLUME 89.8 fL (73.0-96.2); MONOCYTES # (AUTO) 0.8 K/uL (0.1-1.30); MONOCYTES % (AUTO) 7.9 % (0.0-11.0); NEUTROPHILS # (AUTO) 8.7 K/uL (1.8-8.9); PLATELET COUNT (AUTO) 323 K/uL (152-348); RED BLOOD CELL COUNT(AUTO) 3.85 MIL/uL (4.06-5.63); RED CELL DISTRIBUTION WIDTH 15.1 % (12.1-16.2); WHITE BLOOD COUNT (AUTO) 10.4 K/uL (3.6-10.2)
[2023-05-12 07:16] LABS: DIFFERENTIAL COMMENT 1
[2023-05-12 07:25] LABS: ALANINE AMINOTRANSFERASE 26 U/L (16-63); ALKALINE PHOSPHATASE 106 U/L (50-136); ASPARTATE AMINOTRANSFERASE 24 U/L (15-37); BILIRUBIN,TOTAL 0.3 mg/dL (0.2-1.0); CALCIUM 9.1 mg/dL (8.5-10.1); CARBON DIOXIDE 27 mmol/L (21-32); CHLORIDE 100 mmol/L (98-107); CREATININE 1.2 mg/dL (0.6-1.3); GLUCOSE 91 mg/dL (74-106); PHOSPHOROUS 2.6 mg/dL (2.5-4.9); POTASSIUM 3.8 mmol/L (3.5-5.1); SODIUM SERUM 138 mmol/L (136-145); UREA NITROGEN, BLOOD 41 mg/dL (7-18)
[2023-05-12 07:26] LABS: ALBUMIN 2.9 g/dL (3.4-5.0); MAGNESIUM 2.3 mg/dL (1.8-2.4); TOTAL PROTEIN, SERUM 6.6 g/dL (6.4-8.2)
[2023-05-12 08:00] VITALS: BP 135/58; TEMP 98.8; O2SAT 95
[2023-05-12] MEDS ORDERED: ACETAMINOPHEN ES 500 MG TABLET- SA PATIENTS-PAIN ONLY PO PRN (08:00)
[2023-05-12] MEDS ORDERED: NEOMY/BACITRAC/POLYMI OINT 28.35 GM TUBE TP PRN (08:00)
[2023-05-12] MEDS ORDERED: [UNRECOGNIZED DRUG - REMARK] PO SCH (09:00)
[2023-05-12] MEDS ORDERED: MODAFINIL 200 MG PO SCH (09:00)
[2023-05-12] MEDS ORDERED: Medication Not On Formulary EA (Argin/Glut/Cahmb/Collag/Mv-Min (Juven Packet) 1 EACH) PO SCH (09:00)
[2023-05-12] MEDS: ARGININE/GLUTAMINE/CALCIUM BMB 1 EACH POWD.PACK PO SCH (09:00)
[2023-05-12] MEDS ORDERED: GABAPENTIN 100 MG CAPSULE PO SCH (09:00)
[2023-05-12] MEDS: SENNOSIDES 1 TABLET PO SCH (09:10)
[2023-05-12] MEDS: DULOXETINE 60 MG CAPSULE.DR PO SCH (09:10)
[2023-05-12] MEDS: CARBIDOPA/LEVODOPA 25-100MG TABLET PO SCH (09:10)
[2023-05-12] MEDS: ASPIRIN EC 81 MG TABLET.DR PO SCH (09:11)
[2023-05-12] MEDS: MIRALAX 17 GM POWD.PACK PO SCH (09:11)
[2023-05-12] MEDS: ALLOPURINOL 100 MG TABLET PO SCH (09:11)
[2023-05-12] MEDS: GABAPENTIN 400 MG CAPSULE PO SCH (09:11)
[2023-05-12] MEDS: MODAFINIL 100 MG TABLET PO SCH (09:11)
[2023-05-12] MEDS: DEXAMETHASONE SOD PHOSPHATE 4 MG INJ IV SCH (09:15)
[2023-05-12] MEDS: HYDROCODONE/APAP 10-325 MG TABLET PO PRN (09:16)
[2023-05-12] MEDS: CARVEDILOL 12.5 MG TABLET PO SCH (09:16)
[2023-05-12 11:10] VITALS: BP 110/56; TEMP 98.2; O2SAT 96
[2023-05-12] MEDS: MULTIVIT, IRON, MIN NO. 8, FA TABLET PO SCH (11:11)
[2023-05-12] MEDS: AMLODIPINE 5 MG TABLET PO SCH (11:12)
[2023-05-12] MEDS: CEFEPIME HCL 1 G in IV DEXTROSE 5% 50 ML IV SCH (12:16)
[2023-05-12 15:31] VITALS: BP 105/62; TEMP 98; O2SAT 97
[2023-05-12 20:00] VITALS: BP 129/63; TEMP 97.5; O2SAT 98
[2023-05-12] MEDS: TAMSULOSIN HCL 0.4 MG CAP.SR.24H PO SCH (20:46)
[2023-05-12] MEDS ORDERED: ATORVASTATIN 10 MG TABLET PO SCH (21:00)
[2023-05-13 04:00] VITALS: BP 140/68; TEMP 98.2; O2SAT 97
[2023-05-13 08:09] VITALS: BP 147/73; TEMP 98.2; O2SAT 94
[2023-05-13 16:00] VITALS: BP 135/67; TEMP 97.8; O2SAT 96
[2023-05-13] MEDS: ACETAMINOPHEN ES 500 MG TABLET PO PRN (17:34)
[2023-05-13 20:00] VITALS: BP 84/57; TEMP 96.5; O2SAT 91
[2023-05-13 20:32] VITALS: BP 100/56
[2023-05-14 04:00] VITALS: BP 155/66; TEMP 96.7; O2SAT 95
[2023-05-14 07:38] LABS: ALANINE AMINOTRANSFERASE 32 U/L (16-63); ALBUMIN 2.9 g/dL (3.4-5.0); ALKALINE PHOSPHATASE 115 U/L (50-136); ASPARTATE AMINOTRANSFERASE 43 U/L (15-37); BILIRUBIN,TOTAL 0.5 mg/dL (0.2-1.0); CARBON DIOXIDE 27 mmol/L (21-32); CHLORIDE 94 mmol/L (98-107); CREATININE 1.1 mg/dL (0.6-1.3); GLUCOSE 111 mg/dL (74-106); PHOSPHOROUS 3.1 mg/dL (2.5-4.9); POTASSIUM 4.2 mmol/L (3.5-5.1); SODIUM SERUM 130 mmol/L (136-145); TOTAL PROTEIN, SERUM 6.9 g/dL (6.4-8.2); UREA NITROGEN, BLOOD 28 mg/dL (7-18)
[2023-05-14 07:50] LABS: BASOPHILS % (AUTO) 0.1 % (0.0-2.0); EOSINOPHILS % (AUTO) 0.1 % (0.0-7.0); HEMOGLOBIN 11.9 g/dL (12.5-16.3); LYMPHOCYTES # (AUTO) 0.7 K/uL (0.8-4.8); LYMPHOCYTES % (AUTO) 7.7 % (20.5-51.5); MEAN CORPUSCULAR HEMOGLOBIN 30.1 uug (23.8-33.4); MEAN CORPUSCULAR HGB CONC 33 g/dL (32.5-36.3); MONOCYTES # (AUTO) 0.8 K/uL (0.1-1.30); MONOCYTES % (AUTO) 8.8 % (0.0-11.0); NEUTROPHILS # (AUTO) 7.3 K/uL (1.8-8.9); NEUTROPHILS % (AUTO) 83.3 % (38.5-71.5); PLATELET COUNT (AUTO) 330 K/uL (152-348); RED BLOOD CELL COUNT(AUTO) 3.96 MIL/uL (4.06-5.63); RED CELL DISTRIBUTION WIDTH 15.1 % (12.1-16.2); WHITE BLOOD COUNT (AUTO) 8.8 K/uL (3.6-10.2)
[2023-05-14 07:59] LABS: DIFFERENTIAL COMMENT 1
[2023-05-14 08:11] VITALS: BP 147/86; TEMP 98; O2SAT 96
[2023-05-14] MEDS: DULOXETINE 30 MG CAPSULE.DR PO SCH (08:34)
[2023-05-14] MEDS: ZINC SULFATE 220 MG CAPSULE PO SCH (08:38)
[2023-05-14] MEDS: PROTEIN SUPPLEMENT (PROSTAT) 30 ML LIQUID PO SCH (08:38)
[2023-05-14] MEDS: ASCORBIC ACID 500 MG TABLET PO SCH (08:38)
[2023-05-14 14:21] LABS: *SODIUM RNDM,URINE 107 mmol/L (40-220)
[2023-05-14 14:58] VITALS: BP 142/75; TEMP 98.4; O2SAT 96
[2023-05-14] MEDS: BUPRENORPHINE SL SCH (17:14)
[2023-05-14] MEDS: NALOXONE SL SCH (17:14)
[2023-05-14 19:41] VITALS: BP 119/66; TEMP 98; O2SAT 91
[2023-05-15 04:00] VITALS: BP 111/56; TEMP 98; O2SAT 91
[2023-05-15 08:05] VITALS: BP 128/61; TEMP 98.6; O2SAT 97
[2023-05-15 09:03] LABS: CALCIUM 8.9 mg/dL (8.5-10.1); CARBON DIOXIDE 25 mmol/L (21-32); CHLORIDE 97 mmol/L (98-107); CREATININE 1.1 mg/dL (0.6-1.3); GLUCOSE 117 mg/dL (74-106); PHOSPHOROUS 3.7 mg/dL (2.5-4.9); POTASSIUM 4.5 mmol/L (3.5-5.1); SODIUM SERUM 132 mmol/L (136-145); UREA NITROGEN, BLOOD 35 mg/dL (7-18); URIC ACID 4.8 mg/dL (3.5-7.2)
[2023-05-15 09:10] LABS: THYROID STIMULATING HORMONE 0.726 mIU/mL (0.358-3.740)
[2023-05-15 09:18] LABS: MAGNESIUM 1.9 mg/dL (1.8-2.4)
[2023-05-15] MEDS ORDERED: NALOXONE SL SCH (16:00)
[2023-05-15] MEDS ORDERED: BUPRENORPHINE SL SCH (16:00)
[2023-05-15 16:10] VITALS: BP 100/54; TEMP 98.1; O2SAT 96
[2023-05-15 19:45] VITALS: BP 110/60; TEMP 98; O2SAT 96
[2023-05-15] MEDS: DEXAMETHASONE SOD PHOSPHATE 4 MG INJ IV SCH (21:01)
[2023-05-16 05:30] VITALS: BP 120/60; TEMP 97.6; O2SAT 96
[2023-05-16 07:54] LABS: BASOPHILS % (AUTO) 0.2 % (0.0-2.0); EOSINOPHILS % (AUTO) 0.4 % (0.0-7.0); HEMATOCRIT 34.8 % (36.7-47.1); HEMOGLOBIN 11.8 g/dL (12.5-16.3); LYMPHOCYTES # (AUTO) 1.1 K/uL (0.8-4.8); LYMPHOCYTES % (AUTO) 10.8 % (20.5-51.5); MEAN CORPUSCULAR HEMOGLOBIN 30.6 uug (23.8-33.4); MEAN CORPUSCULAR HGB CONC 34 g/dL (32.5-36.3); MEAN CORPUSCULAR VOLUME 90.1 fL (73.0-96.2); MONOCYTES # (AUTO) 0.8 K/uL (0.1-1.30); MONOCYTES % (AUTO) 7.7 % (0.0-11.0); NEUTROPHILS # (AUTO) 7.9 K/uL (1.8-8.9); NEUTROPHILS % (AUTO) 80.9 % (38.5-71.5); PLATELET COUNT (AUTO) 331 K/uL (152-348); RED BLOOD CELL COUNT(AUTO) 3.86 MIL/uL (4.06-5.63); RED CELL DISTRIBUTION WIDTH 14.9 % (12.1-16.2); WHITE BLOOD COUNT (AUTO) 9.8 K/uL (3.6-10.2)
[2023-05-16 07:58] LABS: DIFFERENTIAL COMMENT 1
[2023-05-16 08:21] LABS: ALANINE AMINOTRANSFERASE 20 U/L (16-63); ALBUMIN 2.7 g/dL (3.4-5.0); ALKALINE PHOSPHATASE 102 U/L (50-136); ASPARTATE AMINOTRANSFERASE 21 U/L (15-37); BILIRUBIN,TOTAL 0.3 mg/dL (0.2-1.0); CALCIUM 8.8 mg/dL (8.5-10.1); CARBON DIOXIDE 27 mmol/L (21-32); CHLORIDE 97 mmol/L (98-107); CREATININE 1.3 mg/dL (0.6-1.3); GLUCOSE 97 mg/dL (74-106); MAGNESIUM 2.2 mg/dL (1.8-2.4); PHOSPHOROUS 4.3 mg/dL (2.5-4.9); POTASSIUM 4.7 mmol/L (3.5-5.1); SODIUM SERUM 133 mmol/L (136-145); TOTAL PROTEIN, SERUM 6.6 g/dL (6.4-8.2); UREA NITROGEN, BLOOD 48 mg/dL (7-18)
[2023-05-16 08:30] VITALS: BP 138/66; TEMP 97.4; O2SAT 96
[2023-05-16] MEDS: DULOXETINE 60 MG CAPSULE.DR PO SCH (08:55)
[2023-05-16 11:44] VITALS: BP 101/55; TEMP 98.7; O2SAT 96
[2023-05-16 14:20] VITALS: O2SAT 96
[2023-05-16 16:30] VITALS: BP 132/29; TEMP 97.8; O2SAT 99
[2023-05-16] MEDS: PROTEIN SUPPLEMENT (PROSTAT) 30 ML LIQUID PO SCH (17:05)
[2023-05-16 20:00] VITALS: BP 98/51; TEMP 98.6; O2SAT 99
[2023-05-17 00:33] VITALS: O2SAT 96
[2023-05-17 04:55] VITALS: BP 125/59; TEMP 97.7; O2SAT 95
[2023-05-17 08:00] VITALS: BP 137/73; TEMP 98.6; O2SAT 95
[2023-05-17 12:14] VITALS: BP 144/66; TEMP 98.3; O2SAT 98
[2023-05-17 15:32] VITALS: BP 137/74; TEMP 98.2; O2SAT 96
[2023-05-17 20:00] VITALS: BP 126/60; TEMP 98; O2SAT 96
[2023-05-18 04:00] VITALS: BP 168/60; TEMP 97.9; O2SAT 96
[2023-05-18 08:00] VITALS: BP 120/78; TEMP 98.2; O2SAT 96
[2023-05-18 11:39] VITALS: BP 137/73; TEMP 98.2; O2SAT 96
[2023-05-18] MEDS ORDERED: DEXA4TAB PO (12:26)
[2023-05-18] MEDS: DEXAMETHASONE 4 MG TABLET PO SCH ×2 (14:18→17:13)
[2023-05-18 15:20] VITALS: TEMP 98.2; O2SAT 100
[2023-05-18 20:00] VITALS: BP 108/54; TEMP 98; O2SAT 93
[2023-05-19 04:00] VITALS: BP 112/76; TEMP 98; O2SAT 95
[2023-05-19 08:41] VITALS: BP 146/76; TEMP 97.3; O2SAT 94
[2023-05-19 11:53] VITALS: BP 106/53; TEMP 97.5; O2SAT 95
[2023-05-19 16:09] VITALS: BP 118/59; TEMP 97.9; O2SAT 96
[2023-05-19 20:45] VITALS: BP 117/52; TEMP 98.5; O2SAT 96
[2023-05-20 04:35] VITALS: BP 175/90; TEMP 98.4; O2SAT 96
[2023-05-20] MEDS: CLONIDINE HCL 0.1 MG TABLET PO PRN (04:56)
[2023-05-20 12:00] VITALS: BP 109/60; TEMP 97.6; O2SAT 96
[2023-05-20 16:40] VITALS: BP 115/60; TEMP 97.5; O2SAT 96
[2023-05-20 17:30] VITALS: BP 93/45; TEMP 97.3; O2SAT 94
[2023-05-20 20:00] VITALS: BP 100/50; TEMP 97.3; O2SAT 95
[2023-05-21 04:00] VITALS: BP 145/70; TEMP 98; O2SAT 94
[2023-05-21 08:53] LABS: BASOPHILS # (AUTO) 0.1 K/UL (0.0-0.2); BASOPHILS % (AUTO) 0.8 % (0.0-2.0); EOSINOPHILS # (AUTO) 0.2 K/uL (0.0-0.7); EOSINOPHILS % (AUTO) 2.8 % (0.0-7.0); HEMATOCRIT 37.2 % (36.7-47.1); HEMOGLOBIN 12.6 g/dL (12.5-16.3); LYMPHOCYTES # (AUTO) 0.9 K/uL (0.8-4.8); LYMPHOCYTES % (AUTO) 12.3 % (20.5-51.5); MEAN CORPUSCULAR HEMOGLOBIN 30.5 uug (23.8-33.4); MEAN CORPUSCULAR HGB CONC 34 g/dL (32.5-36.3); MEAN CORPUSCULAR VOLUME 90.3 fL (73.0-96.2); MONOCYTES # (AUTO) 0.4 K/uL (0.1-1.30); MONOCYTES % (AUTO) 5.3 % (0.0-11.0); NEUTROPHILS # (AUTO) 6.1 K/uL (1.8-8.9); NEUTROPHILS % (AUTO) 78.8 % (38.5-71.5); PLATELET COUNT (AUTO) 380 K/uL (152-348); RED BLOOD CELL COUNT(AUTO) 4.12 MIL/uL (4.06-5.63); RED CELL DISTRIBUTION WIDTH 15.2 % (12.1-16.2); WHITE BLOOD COUNT (AUTO) 7.7 K/uL (3.6-10.2)
[2023-05-21 08:57] LABS: CALCIUM 9.6 mg/dL (8.5-10.1); CARBON DIOXIDE 29 mmol/L (21-32); CHLORIDE 98 mmol/L (98-107); CREATININE 1.2 mg/dL (0.6-1.3); GLUCOSE 125 mg/dL (74-106); POTASSIUM 4.3 mmol/L (3.5-5.1); SODIUM SERUM 134 mmol/L (136-145); UREA NITROGEN, BLOOD 41 mg/dL (7-18)
[2023-05-21 09:10] LABS: DIFFERENTIAL COMMENT 1
[2023-05-21 11:30] VITALS: BP 117/51; TEMP 97.6; O2SAT 94
[2023-05-21] MEDS: NEOMY/BACITRAC/POLYMI OINT 28.35 GM TUBE TP SCH (12:52)
[2023-05-21 16:00] VITALS: BP 125/64; TEMP 98.6; O2SAT 98
[2023-05-21 20:00] VITALS: BP 107/53; TEMP 98.1; O2SAT 92
[2023-05-22 04:00] VITALS: BP 151/67; TEMP 98; O2SAT 91
[2023-05-22 12:00] VITALS: BP 110/53; TEMP 97.2; O2SAT 96
[2023-05-22] MEDS: MORPHINE SULFATE 2 MG/1 ML DISP.SYRIN IV PRN (14:22)
[2023-05-22 16:04] VITALS: BP 122/62; TEMP 97.6; O2SAT 9
[2023-05-22 20:00] VITALS: BP 108/51; TEMP 97.9; O2SAT 95
[2023-05-22] MEDS: GABAPENTIN 400 MG CAPSULE PO SCH (20:28)
[2023-05-22 21:12] VITALS: O2SAT 96
[2023-05-23 03:55] VITALS: BP 120/61; TEMP 97.6; O2SAT 96
[2023-05-23 08:55] VITALS: BP 162/89; TEMP 97.3; O2SAT 93
[2023-05-23 11:36] LABS: BASOPHILS % (AUTO) 0.4 % (0.0-2.0); EOSINOPHILS # (AUTO) 0.1 K/uL (0.0-0.7); EOSINOPHILS % (AUTO) 1.3 % (0.0-7.0); HEMATOCRIT 37.2 % (36.7-47.1); HEMOGLOBIN 12.6 g/dL (12.5-16.3); LYMPHOCYTES # (AUTO) 0.7 K/uL (0.8-4.8); LYMPHOCYTES % (AUTO) 6.7 % (20.5-51.5); MEAN CORPUSCULAR HEMOGLOBIN 30.3 uug (23.8-33.4); MEAN CORPUSCULAR HGB CONC 34 g/dL (32.5-36.3); MEAN CORPUSCULAR VOLUME 89.5 fL (73.0-96.2); MONOCYTES # (AUTO) 0.7 K/uL (0.1-1.30); MONOCYTES % (AUTO) 6.8 % (0.0-11.0); NEUTROPHILS # (AUTO) 9.1 K/uL (1.8-8.9); NEUTROPHILS % (AUTO) 84.8 % (38.5-71.5); PLATELET COUNT (AUTO) 381 K/uL (152-348); RED BLOOD CELL COUNT(AUTO) 4.16 MIL/uL (4.06-5.63); RED CELL DISTRIBUTION WIDTH 15.6 % (12.1-16.2); WHITE BLOOD COUNT (AUTO) 10.8 K/uL (3.6-10.2)
[2023-05-23 11:41] LABS: DIFFERENTIAL COMMENT 1
[2023-05-23 11:46] LABS: CALCIUM 10.2 mg/dL (8.5-10.1); CARBON DIOXIDE 29 mmol/L (21-32); CHLORIDE 97 mmol/L (98-107); CREATININE 1.1 mg/dL (0.6-1.3); GLUCOSE 152 mg/dL (74-106); POTASSIUM 4.3 mmol/L (3.5-5.1); SODIUM SERUM 132 mmol/L (136-145); UREA NITROGEN, BLOOD 35 mg/dL (7-18)
[2023-05-23 12:00] VITALS: BP 146/76; TEMP 97.6; O2SAT 97
[2023-05-23 16:00] VITALS: BP 108/62; TEMP 97.2; O2SAT 97
[2023-05-23] MEDS ORDERED: GUAIFENESIN/CODEINE 5 ML LIQUID UDC PO PRN (17:30)
[2023-05-23] MEDS: GUAIFENESIN/DEXTROMETHORPHAN 5 ML UDC PO PRN (18:28)
[2023-05-23 20:00] VITALS: BP 120/66; TEMP 98; O2SAT 95
[2023-05-24] VITALS (7 sets, daily range): BP systolic 108–131; BP diastolic 55–68; TEMP 97.9–98.5; O2SAT 95–98
[2023-05-24] MEDS: ALBUTEROL SULFATE 2.5 MG/ 0.5 ML NEBU NEB PRN (04:50)
[2023-05-24] MEDS: LORAZEPAM 2 MG/1 ML VIAL IV PRN (09:27)
[2023-05-24] MEDS ORDERED: GADOTERATE MEGLUMINE 10 MMOL/20 ML VIAL IV ONE (11:15)
[2023-05-25 04:00] VITALS: BP 115/62; TEMP 100.1; O2SAT 91
[2023-05-25 11:22] VITALS: BP 131/70; TEMP 97.6; O2SAT 96
[2023-05-25 12:35] LABS: *BILIRUBIN,URIN NEGATIVE (NEGATIVE); *BLOOD, URINE 3+ (NEGATIVE); *CLARITY,URINE CLEAR (CLEAR); *COLOR,URINE YELLOW (YELLOW); *KETONES,URINE NEGATIVE (NEGATIVE); *PROTEIN,URINE 2+ (NEGATIVE); *UROBILINOGEN,URINE 0.2 E.U./dl (NORMAL); LEUKOCYTE ESTERASE ,URINE TRACE (NEGATIVE); NITRITE, URINE NEGATIVE (NEGATIVE); PH,URINE 5.5 (5.0-8.0); UGLUCOSE NEGATIVE (NEGATIVE)
[2023-05-25 13:16] LABS: BACTERIA,URINE MODERATE /HPF (NONE SEEN); RBC,URINE 80-100 /HPF (0-3); YEAST,URINE BUDDING YEAST /HPF (NONE SEEN)
[2023-05-25 13:17] LABS: CALCIUM OXALATE CRYSTALS,UR MODERATE /HPF (NONE SEEN)
[2023-05-25 13:19] LABS: BASOPHILS # (AUTO) 0.1 K/UL (0.0-0.2); BASOPHILS % (AUTO) 1.2 % (0.0-2.0); EOSINOPHILS # (AUTO) 0.2 K/uL (0.0-0.7); EOSINOPHILS % (AUTO) 3.9 % (0.0-7.0); HEMATOCRIT 34.9 % (36.7-47.1); HEMOGLOBIN 11.7 g/dL (12.5-16.3); LYMPHOCYTES # (AUTO) 0.5 K/uL (0.8-4.8); MEAN CORPUSCULAR HEMOGLOBIN 30.3 uug (23.8-33.4); MEAN CORPUSCULAR HGB CONC 34 g/dL (32.5-36.3); MONOCYTES # (AUTO) 0.4 K/uL (0.1-1.30); MONOCYTES % (AUTO) 8.5 % (0.0-11.0); NEUTROPHILS % (AUTO) 76.4 % (38.5-71.5); PLATELET COUNT (AUTO) 349 K/uL (152-348); RED BLOOD CELL COUNT(AUTO) 3.87 MIL/uL (4.06-5.63); RED CELL DISTRIBUTION WIDTH 15.4 % (12.1-16.2); WHITE BLOOD COUNT (AUTO) 5.2 K/uL (3.6-10.2)
[2023-05-25 13:26] LABS: DIFFERENTIAL COMMENT 1
[2023-05-25 13:47] LABS: ALANINE AMINOTRANSFERASE 12 U/L (16-63); ALBUMIN 2.1 g/dL (3.4-5.0); ALKALINE PHOSPHATASE 97 U/L (50-136); ASPARTATE AMINOTRANSFERASE 25 U/L (15-37); BILIRUBIN,TOTAL 0.4 mg/dL (0.2-1.0); CALCIUM 10.1 mg/dL (8.5-10.1); CARBON DIOXIDE 28 mmol/L (21-32); CHLORIDE 96 mmol/L (98-107); CREATININE 1.3 mg/dL (0.6-1.3); GLUCOSE 167 mg/dL (74-106); NT-PRO BNP 1259 pg/mL (0-125); PHOSPHOROUS 3.3 mg/dL (2.5-4.9); SODIUM SERUM 132 mmol/L (136-145); TOTAL PROTEIN, SERUM 6.5 g/dL (6.4-8.2); UREA NITROGEN, BLOOD 32 mg/dL (7-18)
[2023-05-25 15:57] VITALS: BP 98/52; TEMP 97.8; O2SAT 96
[2023-05-25 20:48] VITALS: BP 95/42; TEMP 98.6; O2SAT 93
[2023-05-25] MEDS: FLUCONAZOLE 100 MG TABLET PO SCH (21:51)
[2023-05-25] MEDS ORDERED: MEROPENEM 500MG/NS 50ML PB ***ER PYXIS ONLY IV ONE (21:58)
[2023-05-25] MEDS: MEROPENEM 500 MG in IV NORMAL SALINE 50 ML IV SCH (22:16)
[2023-05-26] MEDS ORDERED: MEROPENEM 500MG/NS 50ML PB ***ER PYXIS ONLY IV ONE (01:01)
[2023-05-26 04:00] VITALS: BP 118/64; TEMP 98.3; O2SAT 95
[2023-05-26] MEDS: NEPRO (VANILLA) 237 ML CAN PO SCH (10:55)
[2023-05-26 11:15] VITALS: BP 122/64; TEMP 97.5; O2SAT 96
[2023-05-26] MEDS ORDERED: MEROPENEM 500 MG in IV NORMAL SALINE 50 ML IV SCH (13:00)
[2023-05-26 15:28] VITALS: BP 104/53; TEMP 98.4; O2SAT 96
[2023-05-26] MEDS: MEROPENEM 500 MG in IV NORMAL SALINE 50 ML IV SCH (17:59)
[2023-05-26] MEDS: FLUCONAZOLE 100 MG TABLET PO SCH (21:16)
[2023-05-26 22:33] VITALS: BP 105/55; TEMP 97.7; O2SAT 96
[2023-05-27 04:56] VITALS: BP 131/68; TEMP 97.9; O2SAT 96
[2023-05-27 06:57] LABS: CALCIUM 9.7 mg/dL (8.5-10.1); CARBON DIOXIDE 26 mmol/L (21-32); CHLORIDE 99 mmol/L (98-107); GLUCOSE 128 mg/dL (74-106); PHOSPHOROUS 3.2 mg/dL (2.5-4.9); POTASSIUM 4.2 mmol/L (3.5-5.1); SODIUM SERUM 133 mmol/L (136-145); UREA NITROGEN, BLOOD 33 mg/dL (7-18)
[2023-05-27 07:01] LABS: BASOPHILS % (AUTO) 0.4 % (0.0-2.0); EOSINOPHILS # (AUTO) 0.1 K/uL (0.0-0.7); EOSINOPHILS % (AUTO) 2.8 % (0.0-7.0); HEMATOCRIT 32.8 % (36.7-47.1); LYMPHOCYTES # (AUTO) 0.6 K/uL (0.8-4.8); LYMPHOCYTES % (AUTO) 11.8 % (20.5-51.5); MEAN CORPUSCULAR HEMOGLOBIN 30.4 uug (23.8-33.4); MEAN CORPUSCULAR HGB CONC 34 g/dL (32.5-36.3); MEAN CORPUSCULAR VOLUME 90.8 fL (73.0-96.2); MONOCYTES # (AUTO) 0.5 K/uL (0.1-1.30); MONOCYTES % (AUTO) 9.8 % (0.0-11.0); NEUTROPHILS # (AUTO) 3.8 K/uL (1.8-8.9); NEUTROPHILS % (AUTO) 75.2 % (38.5-71.5); PLATELET COUNT (AUTO) 384 K/uL (152-348); RED BLOOD CELL COUNT(AUTO) 3.61 MIL/uL (4.06-5.63); RED CELL DISTRIBUTION WIDTH 15.5 % (12.1-16.2); WHITE BLOOD COUNT (AUTO) 5.1 K/uL (3.6-10.2)
[2023-05-27 07:03] LABS: DIFFERENTIAL COMMENT 1
[2023-05-27 10:20] VITALS: O2SAT 97
[2023-05-27 11:44] VITALS: BP 101/54; TEMP 97.5; O2SAT 96
[2023-05-27] MEDS: MEROPENEM 500 MG in IV NORMAL SALINE 50 ML IV SCH (13:26)
[2023-05-27 15:46] VITALS: BP 119/61; TEMP 98.3; O2SAT 97
[2023-05-27 20:00] VITALS: BP 125/59; TEMP 97.9; O2SAT 96
[2023-05-28 04:42] VITALS: BP 115/60; TEMP 97.8; O2SAT 95
[2023-05-28 08:52] VITALS: BP 147/67; TEMP 97.8; O2SAT 94
[2023-05-28 11:51] VITALS: BP 98/59; TEMP 97.3; O2SAT 95
[2023-05-28 16:00] VITALS: BP 134/65; TEMP 97.4; O2SAT 98
[2023-05-28 20:31] VITALS: BP 107/51; TEMP 98.1; O2SAT 100
[2023-05-28] MEDS: LINEZOLID 600 MG TABLET PO SCH (21:00)
[2023-05-29] VITALS (7 sets, daily range): BP systolic 129–174; BP diastolic 60–93; TEMP 97.8–98.4; O2SAT 92–97
[2023-05-29 07:40] LABS: BASOPHILS % (AUTO) 0.3 % (0.0-2.0); EOSINOPHILS # (AUTO) 0.2 K/uL (0.0-0.7); HEMATOCRIT 34.6 % (36.7-47.1); HEMOGLOBIN 11.6 g/dL (12.5-16.3); LYMPHOCYTES # (AUTO) 0.8 K/uL (0.8-4.8); MEAN CORPUSCULAR HEMOGLOBIN 30.2 uug (23.8-33.4); MEAN CORPUSCULAR HGB CONC 34 g/dL (32.5-36.3); MEAN CORPUSCULAR VOLUME 90.2 fL (73.0-96.2); MONOCYTES # (AUTO) 0.6 K/uL (0.1-1.30); MONOCYTES % (AUTO) 8.3 % (0.0-11.0); NEUTROPHILS # (AUTO) 5.9 K/uL (1.8-8.9); NEUTROPHILS % (AUTO) 77.4 % (38.5-71.5); PLATELET COUNT (AUTO) 416 K/uL (152-348); RED BLOOD CELL COUNT(AUTO) 3.84 MIL/uL (4.06-5.63); RED CELL DISTRIBUTION WIDTH 15.6 % (12.1-16.2); WHITE BLOOD COUNT (AUTO) 7.6 K/uL (3.6-10.2)
[2023-05-29 07:52] LABS: DIFFERENTIAL COMMENT 1
[2023-05-29 07:57] LABS: ALANINE AMINOTRANSFERASE 76 U/L (16-63); ALBUMIN 2.4 g/dL (3.4-5.0); ALKALINE PHOSPHATASE 117 U/L (50-136); ASPARTATE AMINOTRANSFERASE 41 U/L (15-37); BILIRUBIN,TOTAL 0.4 mg/dL (0.2-1.0); CALCIUM 9.9 mg/dL (8.5-10.1); CARBON DIOXIDE 29 mmol/L (21-32); CHLORIDE 92 mmol/L (98-107); GLUCOSE 98 mg/dL (74-106); MAGNESIUM 1.9 mg/dL (1.8-2.4); PHOSPHOROUS 2.8 mg/dL (2.5-4.9); POTASSIUM 4.2 mmol/L (3.5-5.1); SODIUM SERUM 128 mmol/L (136-145); TOTAL PROTEIN, SERUM 6.8 g/dL (6.4-8.2); UREA NITROGEN, BLOOD 25 mg/dL (7-18)
[2023-05-29] MEDS ORDERED: LINEZOLID 600 MG TABLET PO SCH (09:00)
[2023-05-29] MEDS: DAPTOMYCIN 500 MG in IV NORMAL SALINE 50 ML IV SCH (11:20)
[2023-05-29 12:03] LABS: BAND % (MANUAL) 5 % (0-10); EOSINOPHILS % (MANUAL) 2 % (0-8); LYMPHOCYTES % (MANUAL) 14 % (20-40); MONOCYTES % (MANUAL) 8 % (2-10); NEUTROPHILS % (MANUAL) 71 % (42-75)
[2023-05-29 12:05] LABS: PLATELET ESTIMATE SLIGHT INCREASED
[2023-05-29] MEDS ORDERED: Multivit, Iron, Min No. 8, Fa PO (12:31)
[2023-05-29] MEDS ORDERED: DAPT500V2 IV (12:31)
[2023-05-29] MEDS ORDERED: FLUC100T PO (12:31)
[2023-05-29] MEDS ORDERED: ASCO500T21 PO (12:31)
[2023-05-29] MEDS ORDERED: GUAI5SYR PO (12:31)
[2023-05-29] MEDS ORDERED: MODA100T29 PO (12:31)
[2023-05-29] MEDS ORDERED: GABA-536 PO (12:31)
[2023-05-29] MEDS ORDERED: DEXA4TAB2 PO (12:31)
[2023-05-29] MEDS ORDERED: ZINC1CAP3 PO (12:31)
[2023-05-29] MEDS ORDERED: NUT.237L67 PO (12:31)
[2023-05-29] MEDS: CLONIDINE HCL 0.1 MG TABLET PO ONE (13:17)
[2023-05-29] MEDS ORDERED: SODIUM CHLORIDE 1,000 MG TABLET PO SCH (17:00)
== END 2023-05-29 14:00 | disposition short-term general hospital (02) | DRG 871 ==
LOC: TELE3 19:00 → MEDSURG3 05-12 10:35 → MED 05-13 06:28 → MEDSURG3 05-15 18:27
PROVIDERS: ADMIT Internal Medicine; ATTEND Internal Medicine
DX: A41.9 Sepsis, unspecified organism (principal); E43 Unspecified severe protein-calorie malnutrition; G92.8 Other toxic encephalopathy; N17.0 Acute kidney failure with tubular necrosis; B37.49 Other urogenital candidiasis; T81.31XA Disruption of external operation (surgical) wound, not elsewhere classified, initial encounter; C79.51 Secondary malignant neoplasm of bone; M84.58XA Pathological fracture in neoplastic disease, other specified site, initial encounter for fracture; Z16.21 Resistance to vancomycin; G95.29 Other cord compression; E87.1 Hypo-osmolality and hyponatremia; D68.59 Other primary thrombophilia; T81.41XA Infection following a procedure, superficial incisional surgical site, initial encounter; G20.A1 Parkinson's disease without dyskinesia, without mention of fluctuations; F02.80 Dementia in other diseases classified elsewhere, unspecified severity, without behavioral disturbance, psychotic disturbance, mood disturbance, and anxiety; D63.8 Anemia in other chronic diseases classified elsewhere; B96.89 Other specified bacterial agents as the cause of diseases classified elsewhere; N18.2 Chronic kidney disease, stage 2 (mild); I12.9 Hypertensive chronic kidney disease with stage 1 through stage 4 chronic kidney disease, or unspecified chronic kidney disease; M43.17 Spondylolisthesis, lumbosacral region; N40.0 Benign prostatic hyperplasia without lower urinary tract symptoms; Z75.1 Person awaiting admission to adequate facility elsewhere; Z85.048 Personal history of other malignant neoplasm of rectum, rectosigmoid junction, and anus; Z98.1 Arthrodesis status; Z74.09 Other reduced mobility; G62.9 Polyneuropathy, unspecified; M48.061 Spinal stenosis, lumbar region without neurogenic claudication; Z90.5 Acquired absence of kidney; Z85.528 Personal history of other malignant neoplasm of kidney; Z68.29 Body mass index [BMI] 29.0-29.9, adult; Z87.440 Personal history of urinary (tract) infections; Z87.01 Personal history of pneumonia (recurrent)
CPT/HCPCS: 36415; 70030-TC; 71045; 72158; 83735; 84100; 84300; 84443; 84550; 85025; 87040; 94640; 94664; 97535-GO-CO; A4663; A9150; A9575; G0378; J0692; J0878; J1100; J2060; J2185; J2270; J8499; J8540